=== PATIENT | female | born 1935 | race Caucasian/White ===

== ENCOUNTER 2016-10-31 17:13 | Inpatient (IN) | payer MEDICARE, MEDICAID ==
[2016-10-31] MEDS ORDERED: Sodium Chloride 0.9% 500 ML IV STA (18:07)
[2016-10-31 18:30] LABS: BASO # 0.01 K/mm3 (0.0-2.0); BASO % 0.2 % (0.0-3.0); EOS % 0.7 % (1.5-5.0); GRAN # 2.84 (1.4-6.5); GRAN % 67.2 % (50.0-68.0); HEMOGLOBIN 11.5 g/dL (12.0-16.0); LYMPH # 0.9 (1.2-3.4); LYMPH % 21.3 % (22.0-35.0); MEAN CORPUSCULAR HGB CONC 35.2 g/dl (31.0-37.0); MEAN PLATELET VOLUME 8.4 fl (7.0-11.0); MONO # 0.5 (0.1-0.6); MONO % 10.6 % (1.0-6.0); PLATELET COUNT 368 10^3/uL (120.0-450.0); RBC 4.42 10^6/uL (3.5-6.1); RED CELL DISTRIBUTION WIDTH 13.4 % (11.5-14.5); WHITE BLOOD COUNT 4.2 10^3/ul (4.5-11.0)
[2016-10-31 18:33] LABS: PH,URINE 6.5 (4.7-8.0); URINE BILIRUBIN NEGATIVE (NEGATIVE); URINE BLOOD SMALL (NEGATIVE); URINE GLUCOSE (UA) NEGATIVE (NEGATIVE); URINE LEUKOCYTE ESTERASE LARGE Leu/uL (NEGATIVE); URINE NITRATE POSITIVE (NEGATIVE); URINE PROTEIN TRACE mg/dL (<30 mg/dL)
[2016-10-31 18:35] LABS: URINE APPEARANCE SL CLOUDY (CLEAR); URINE COLOR YELLOW (YELLOW)
[2016-10-31 18:42] LABS: ALB/GLOB RATIO 1.3 (1.1-1.8); ALBUMIN 4.5 g/dL (3.0-4.8); ALT/SGPT 37 U/L (7-56); AST/SGOT 42 U/L (15-39); BLOOD UREA NITROGEN 19 mg/dL (7-21); CALCIUM 9.7 mg/dL (8.4-10.5); GFR AFRICAN-AMERICAN 33; GFR NON-AFRICAN AMERICAN 27
[2016-10-31 18:46] LABS: URINE BACTERIA MANY (NEG); URINE WBC TNTC /hpf (0-6)
[2016-10-31 18:59] LABS: FREE T4 2.01 ng/dL (0.78-2.19)
[2016-10-31] MEDS ORDERED: cefTRIAXone 1 gm 1 GM/100 ML BAG IVPB STA (18:59)
--- NOTE | 2016-10-31 19:00 | RAD ---
HISTORY: Nausea. COMPARISON: None. FINDINGS: LUNGS: No active pulmonary disease. PLEURA: No significant pleural effusion identified, no pneumothorax apparent. CARDIOVASCULAR: No radiographic findings to suggest acute or significant cardiovascular disease. OSSEOUS STRUCTURES: No significant abnormalities. VISUALIZED UPPER ABDOMEN: Normal. OTHER FINDINGS: None. IMPRESSION: No active disease.
--- NOTE | 2016-10-31 19:02 | ED PDOC ---
Arrival/HPI - General Chief Complaint: Female Genitourinary Time Seen by Provider: 10/31/16 17:30 Historian: Patient - History of Present Illness Narrative History of Present Illness (Text): 10/31/16 19:03 An 81 year old female sent from PMD office to the emergency department for workup and admission complaining of decrease in appetite and dysuria for a week. Patient was given prescription for antibiotic - bactrim, two days ago, which she is taking, without any improvement of dysuria. Reports nausea and one episode of vomiting today. Patient was told to get a thyroid test done because of past medical history of thyroid problems. Patient notes a chronic cough but denies any fever, chills, chest pain, SOB, abdominal pain, diarrhea, headache, dizziness or any other complaints at this time. PMD: Dr. Jeter Time/Duration: 1 week Symptom Onset: Sudden Symptom Course: Unchanged Activities at Onset: Rest Past Medical History - Provider Review Nursing Documentation Reviewed: Yes - Cardiac Hx Cardiac Disorders: Yes Hx Hypertension: Yes - Pulmonary Hx Respiratory Disorders: No - Neurological Hx Neurological Disorder: No - HEENT Hx HEENT Disorder: No - Renal Hx Renal Disorder: No - Endocrine/Metabolic Hx Endocrine Disorders: Yes Hx Hypothyroidism: Yes - Hematological/Oncological Hx Blood Disorders: No - Integumentary Hx Dermatological Disorder: No - Musculoskeletal/Rheumatological Hx Musculoskeletal Disorders: No - Gastrointestinal Hx Gastrointestinal Disorders: No - Genitourinary/Gynecological Hx Genitourinary Disorders: No - Psychiatric Hx Psychophysiologic Disorder: No Hx Substance Use: No Family/Social History - Physician Review Nursing Documentation Reviewed: Yes Family/Social History: No Known Family HX Smoking Status: Never Smoked Hx Alcohol Use: No Hx Substance Use: No Allergies/Home Meds Allergies/Adverse Reactions: Allergies No Known Allergies Allergy (Verified 10/31/16 17:22) Home Medications: Home Meds Medication Instructions Recorded Confirmed Bisoprolol [Zebeta] 5 mg PO DAILY 10/31/16 10/31/16 Clobetasol Propionate [Clobetasol 1 appful TOP PRN 10/31/16 10/31/16 Propionate] Ergocalciferol (Vitamin D2) 1.25 mg PO .WEEKLY 10/31/16 10/31/16 [Vitamin D2] Ibuprofen [Motrin Tab] 1 tab PO Q6 PRN 10/31/16 10/31/16 Levothyroxine [Synthroid] 25 mcg PO DAILY 10/31/16 10/31/16 Multivitamin [Multivitamins] 1 tab PO DAILY 10/31/16 10/31/16 Phenazopyridine [Pyridium] 200 mg PO TID 10/31/16 10/31/16 Proctozone-Hc 1 appful [place] BID 10/31/16 10/31/16 Sulfamethoxazole/Trimethoprim 1 tab PO BID 10/31/16 10/31/16 [Bactrim DS Tab] Valsartan/Hydrochlorothiazide 1 tab PO DAILY 10/31/16 10/31/16 [Valsartan-Hctz 160-25 mg Tab] amLODIPine [Norvasc] 10 mg PO DAILY 10/31/16 10/31/16 Review of Systems - Physician Review All systems were reviewed & negative as marked: Yes - Review of Systems Constitutional: absent: Fevers Respiratory: Cough (chronic) Cardiovascular: absent: Chest Pain Gastrointestinal: Nausea, Vomiting, Appetite Changes. absent: Abdominal Pain Genitourinary Female: Dysuria Physical Exam Vital Signs Reviewed: Yes Vital Signs Temp Pulse Resp BP Pulse Ox 10/31/16 21:10 97.9 F 62 16 125/60 93 L 10/31/16 20:20 56 L 16 125/61 94 L 10/31/16 17:19 99.2 F 61 16 124/73 94 L Temperature: Afebrile Blood Pressure: Normal Pulse: Regular Respiratory Rate: Normal Appearance: Positive for: Well-Appearing, Non-Toxic, Comfortable Pain Distress: None Mental Status: Positive for: Alert and Oriented X 3 - Systems Exam Head: Present: Atraumatic, Normocephalic Pupils: Present: PERRL Extroacular Muscles: Present: EOMI Conjunctiva: Present: Normal Mouth: Present: Dry Neck: Present: Normal Range of Motion Respiratory/Chest: Present: Clear to Auscultation, Good Air Exchange. No: Respiratory Distress, Accessory Muscle Use Cardiovascular: Present: Regular Rate and Rhythm, Normal S1, S2. No: Murmurs Abdomen: Present: Normal Bowel Sounds. No: Tenderness, Distention, Peritoneal Signs Back: Present: Normal Inspection Upper Extremity: Present: Normal Inspection. No: Cyanosis, Edema Lower Extremity: Present: Normal Inspection. No: Edema Neurological: Present: GCS=15, CN II-XII Intact, Speech Normal Skin: Present: Warm, Dry, Normal Color. No: Rashes Psychiatric: Present: Alert, Oriented x 3, Normal Insight, Normal Concentration Medical Decision Making ED Course and Treatment: 10/31/16 19:01 Impression: An 81 year old female with dysuria and decrease in appetite. Plan: -- EKG -- chest xray -- labs -- Blood cx -- Urinalysis -- Urine cx -- Zofran, IV fluids, Rocephin -- Reassess and disposition Progress Notes: EKG: SB at 59 bpm, (-) acute ST changes, as read by CHARLIE. CXR : NAD, as read by CHARLIE and ER . 10/31/16 19:03 chest xray: Creator : Davin Read MD IMPRESSION: No active disease. Lab results reviewed : CBC : WBC 4.2, Hgb 11.5/Hct 32.7, lactate 0.8 CMP : NA 120, Bun 19 / creat 1.8, trop (-) UA : +UTI. Rocephin 1 g IV ordered. On reevaluation, the patient laying in bed comfortably in no distress. Patient has no headache, dizziness, chest pain, shortness of breath, abdominal pain or nausea this time. Repeat exam, lungs CTA, cardiac RRR , abdomen still soft and non-tender, repeat neuro shows no focal findings, pt remains awake and alert. VS T 97.9 P 62 BP 125/61 R 16. Diagnostic results discussed with patient and with family, notified of diagnosis of UTI, hyponatremia, likely due to dehydration. Advised of the need for inpt admission for IV antitbiotics and failure of PO antibiotics. Case d/w Dr. Cota, agrees with plan for inpt admission. - Lab Interpretations Lab Results: 10/31/16 17:45 10/31/16 17:45 Lab Results 10/31/16 20:07: pO2 50, VBG pH 7.43, VBG pCO2 40.0, VBG HCO3 26.5, VBG Total CO2 27.7, VBG O2 Sat (Calc) 88.0 H, VBG Base Excess 2.0, VBG Potassium 4.2, Glucose 98, Lactate 0.8, FiO2 21.0, Sodium 121.0 L, Chloride 87.0 L, Venous Blood Potassium 4.2 10/31/16 17:45: Free T4 2.01, Total T3 1.09, TSH 3rd Generation 0.04 L 10/31/16 17:45: Sodium 120 L, Potassium 4.2, Chloride 87 L, Carbon Dioxide 24, Anion Gap 13, BUN 19, Creatinine 1.8 H, Est GFR ( Amer) 33, Est GFR (Non- Af Amer) 27, Random Glucose 106, Calcium 9.7, Magnesium 1.8, Total Bilirubin 0.6 , AST 42 H, ALT 37, Alkaline Phosphatase 69, Lactate Dehydrogenase 333, Total Creatine Kinase 61, Troponin I < 0.01, Total Protein 7.9, Albumin 4.5, Globulin 3.5, Albumin/Globulin Ratio 1.3 10/31/16 17:45: Urine Color Yellow, Urine Appearance Sl cloudy, Urine pH 6.5, Ur Specific [place] <= 1.005, Urine Protein Trace H, Urine Glucose (UA) Negative , Urine Ketones Negative, Urine Blood Small H, Urine Nitrate Positive H, Urine Bilirubin Negative, Urine Urobilinogen 1.0 H, Ur Leukocyte Esterase Large H, Urine RBC 2 - 5, Urine WBC Tntc, Ur Epithelial Cells 4 - 5, Urine Bacteria Many 10/31/16 17:45: WBC 4.2 L, RBC 4.42, Hgb 11.5 L, Hct 32.7 L, MCV 74.0 L, MCH 26.0, MCHC 35.2, RDW 13.4, Plt Count 368, MPV 8.4, Gran % 67.2, Lymph % (Auto) 21.3 L, [place] % (Auto) 10.6 H, Eos % (Auto) 0.7 L, Baso % (Auto) 0.2, Gran # 2.84 , Lymph # 0.9 L, [place] # 0.5, Eos # 0.0, Baso # 0.01, Neutrophils % (Manual) 74 H , Band Neutrophils % [employer], Lymphocytes % (Manual) 16 L, Monocytes % (Manual) 10 H , Platelet Evaluation Normal, Microcytosis (manual) Slight, Ovalocytes Slight I have reviewed the lab results: Yes - RAD Interpretation Radiology Orders: 10/31/16 18:07 CHEST PORTABLE [RAD] Stat - EKG Interpretation Interpreted by ED Physician: Yes Type: 12 lead EKG - Medication Orders Current Medication Orders: Acetaminophen (Tylenol 325mg Tab) 650 mg PO Q6H PRN PRN Reason: Fever >100.4 F Amlodipine Besylate (Norvasc) 10 mg PO DAILY TOÑA Ceftriaxone Sodium (Rocephin 1 Gram Ivpb) 1 gm in 100 mls @ 100 mls/hr IVPB DAILY TOÑA PRN Reason: Protocol Sodium Chloride (Sodium Chloride 0.45%) 1,000 mls @ 100 mls/hr IV .Q10H TOÑA Last Admin: 10/31/16 23:26 Dose: 100 mls/hr Levothyroxine Sodium (Synthroid) 25 mcg PO DAILY TOÑA Non-Formulary Medication (Bisoprolol [Zebeta]) 5 mg PO DAILY TOÑA Phenazopyridine HCl (Pyridium) 200 mg PO TID TOÑA Discontinued Medications Sodium Chloride (Sodium Chloride 0.9%) 500 mls @ 1,000 mls/hr IV .Q30M STA Stop: 10/31/16 18:36 Last Admin: 10/31/16 18:19 Dose: 1,000 mls/hr Ceftriaxone Sodium (Rocephin 1 Gram Ivpb) 1 gm in 100 mls @ 200 mls/hr IVPB STAT STA PRN Reason: Protocol Stop: 10/31/16 19:28 Last Admin: 10/31/16 21:09 Dose: 200 mls/hr Ondansetron HCl (Zofran Inj) 4 mg IVP STAT STA Stop: 10/31/16 18:08 Last Admin: 10/31/16 18:19 Dose: 4 mg Pneumococcal Polyvalent Vaccine (Pneumovax 23 Vaccine) 0.5 ml IM .ONCE ONE Stop: 10/31/16 22:31 - PA / [employer] / Resident Statement / has reviewed & agrees with the documentation as recorded. - Scribe Statement The provider has reviewed the documentation as recorded by the Torres Choudhury Provider Scribe Attestation: All medical record entries made by the Jorgeibkelsey were at my direction and personally dictated by me. I have reviewed the chart and agree that the record accurately reflects my personal performance of the history, physical exam, medical decision making, and the department course for this patient. I have also personally directed, reviewed, and agree with the discharge instructions and disposition. Disposition/Present on Arrival - Present on Arrival Any Indicators Present on Arrival: No History of DVT/PE: No History of Uncontrolled Diabetes: No Urinary Catheter: No History of Decub. Ulcer: No History Surgical Site Infection Following: None - Disposition Have Diagnosis and Disposition been Completed?: Yes Diagnosis: UTI (urinary tract infection), Hyponatremia, Dehydration Disposition: HOSPITALIZED Disposition Time: 20:20 Patient Plan: Admission Condition: STABLE
[2016-10-31 19:13] LABS: T3 1.09 ng/mL (0.97-1.69)
[2016-10-31 19:14] LABS: MAGNESIUM 1.8 mg/dL (1.7-2.2)
[2016-10-31 19:28] LABS: TROPONIN I < 0.01 ng/mL
[2016-10-31 19:33] LABS: LYMPHOCYTE 16 % (22.0-35.0); MICROCYTOSIS SLIGHT; MONOCYTE 10 % (1.0-6.0); NEUTROPHIL 74 % (50.0-70.0); PLATELET ESTIMATE NORMAL (NORMAL)
[2016-10-31 19:34] LABS: OVALOCYTES SLIGHT
[2016-10-31 20:17] LABS: VENOUS BLOOD GAS PO2 50 mm/Hg (30-55); VENOUS BLOOD PH 7.43 (7.32-7.43)
[2016-10-31 22:30] VITALS: BMI 31.2
[2016-10-31] MEDS ORDERED: Pneumococcal 23-Valent Vaccine IM ONE (22:30)
[2016-10-31] MEDS: Sodium Chloride 0.45% 1,000 ML IV SCH (23:26)
[2016-11-01 07:27] LABS: HEMOGLOBIN 9.4 g/dL (12.0-16.0); MEAN CORPUSCULAR HEMOGLOBIN 25.8 pg (25.0-35.0); MEAN CORPUSCULAR HGB CONC 34.4 g/dl (31.0-37.0); MEAN PLATELET VOLUME 8.4 fl (7.0-11.0); PLATELET COUNT 241 10^3/uL (120.0-450.0); RBC 3.64 10^6/uL (3.5-6.1); RED CELL DISTRIBUTION WIDTH 13.5 % (11.5-14.5)
[2016-11-01 07:40] LABS: WHITE BLOOD COUNT 2.6 10^3/ul (4.5-11.0)
[2016-11-01 07:43] LABS: ALB/GLOB RATIO 1.2 (1.1-1.8); ALBUMIN 3.5 g/dL (3.0-4.8); CALCIUM 8.9 mg/dL (8.4-10.5); URIC ACID 4.8 mg/dL (2.5-6.2)
[2016-11-01 07:50] LABS: FREE T4 2.01 ng/dL (0.78-2.19)
--- NOTE | 2016-11-01 07:59 | HP ---
The patient of Dr. Landry. HISTORY OF PRESENT ILLNESS: The patient has not been feeling well, decreased appetite, having some urinary symptoms. She was seen by PMD and was given Bactrim that she started 2 days ago with no significant improvement. She started to have nausea and vomited once and felt extremely weak. So she was brought to the emergency room for further evaluation. Denies any hemoptysis. Denies hematuria. Does have some back pain, but no fever or chills. The patient does complain of having intermittent cough for few days. PAST MEDICAL HISTORY: Significant for, 1. Hypertension. 2. History of hypothyroidism. 3. Chronic back pain. ALLERGIES: SHE IS NOT ALLERGIC TO ANY MEDICATIONS. MEDICATIONS: At home, she is on levothyroxine 25 mcg daily, valsartan 160/25 daily, bisoprolol 5 mg daily, vitamin D, Pyridium 200 three times a day, amlodipine 10 mg daily. SOCIAL HISTORY: She lives with her family. Denies smoking or drinking. REVIEW OF SYSTEMS: Significant for generalized weakness, poor appetite, nauseated. No abdominal pain. PHYSICAL EXAMINATION GENERAL: She is awake and alert, communicative. VITAL SIGNS: She is afebrile. Pulse 62, respirations 16, blood pressure 125/60. HEART: S1, S2 audible. LUNGS: Bilateral fair air flow. No rhonchi or crackles. ABDOMEN: Soft, nontender. No rebound, no guarding. NEUROLOGICAL: She is awake and alert, not able to communicate. LABORATORY DATA: WBC is 4.2, hemoglobin 11.5, hematocrit 32.7, platelets 368. Chemistry, sodium 120, potassium 4.2, chloride 97, CO2 of 24, BUN 19, creatinine 1.8, blood sugar of 106. LFTs are within normal limits. AST 42, ALT 37, troponin 0.01. TSH is 0.04. T4 is 2.01. Urinalysis shows large leukocyte, positive nitrite, and small blood. ASSESSMENT: 1. Hyponatremia. 2. Resistant urinary tract infection. 3. Hypertension. 4. Hyperlipidemia. 5. Hypothyroidism. 6. Renal insufficiency. PLAN: The patient will be admitted. Blood culture and urine cultures were sent. We will start her on IV normal saline. We will resume her antihypertensive. Followup her electrolyte in the a.m. ID consult Dr. Boyle has been requested. Ellen Cota MD [facility] # [id number]
[2016-11-01 09:31] LABS: ANISOCYTOSIS SLIGHT; EOSINOPHIL 2 % (0.0-3.0); LYMPHOCYTE 31 % (22.0-35.0); MONOCYTE 12 % (1.0-6.0); MYELOCYTE 1 %; NEUTROPHIL 54 % (50.0-70.0); PLATELET ESTIMATE NORMAL (NORMAL)
[2016-11-01] MEDS: BISOPROLOL 5 MG PO SCH (10:46)
[2016-11-01] MEDS: Levothyroxine 25 MCG TAB PO SCH ×2 (10:47→11:28)
[2016-11-01] MEDS: Sodium Chloride 0.45% 1,000 ML IV SCH (10:47)
[2016-11-01] MEDS: cefTRIAXone 1 gm 1 GM/100 ML BAG IVPB SCH (10:48)
--- NOTE | 2016-11-01 12:06 | CP.PCM.CON ---
History of Present Illness - History of Present Illness History of Present Illness: 81 year old female with PMH of hypothyroidism, HTN, obesity with BMI 31 was brought in to [facility] after presenting to her PMD complaining of dysuria as well as decreased appetite which started about 4-5 days ago. She was prescribed antibiotics 2 days ago but still has dysuria and pain when uses the bathroom. She had an episode of nausea which is not present currently, denies fever or chills, no headache or dizziness, no chest pain, no SOB, no cough or colds, no abdominal pain, no diarrhea. Urinalysis shows pyuria. Infectious Diseases consult is requested to further evaluate and manage. Review of Systems - Review of Systems All systems: reviewed and no additional remarkable complaints except (as per HPI ) Past Patient History - Past Social History Smoking Status: Never Smoked - CARDIAC Hx Cardiac Disorders: Yes Hx Hypertension: Yes - PULMONARY Hx Respiratory Disorders: No - NEUROLOGICAL Hx Neurological Disorder: No - HEENT Hx HEENT Problems: Yes (glasses) Hx Cataracts: Yes (r eys sx) - RENAL Hx Chronic Kidney Disease: No - ENDOCRINE/METABOLIC Hx Endocrine Disorders: Yes Hx Hypothyroidism: Yes - HEMATOLOGICAL/ONCOLOGICAL Hx Blood Disorders: No - INTEGUMENTARY Hx Dermatological Problems: No - MUSCULOSKELETAL/RHEUMATOLOGICAL Hx Musculoskeletal Disorders: No Hx Falls: No - GASTROINTESTINAL Hx Gastrointestinal Disorders: Yes (obese) - GENITOURINARY/GYNECOLOGICAL Hx Genitourinary Disorders: No - PSYCHIATRIC Hx Psychophysiologic Disorder: No Hx Substance Use: No - SURGICAL HISTORY Hx Surgeries: No Meds Allergies/Adverse Reactions: Allergies Allergy/AdvReac Type Severity Reaction Status Date / Time No Known Allergies Allergy Verified 10/31/16 17:22 - Medications Medications: Current Medications Acetaminophen (Tylenol 325mg Tab) 650 mg PO Q6H PRN PRN Reason: Fever >100.4 F Amlodipine Besylate (Norvasc) 10 mg PO DAILY TOÑA Ceftriaxone Sodium (Rocephin 1 Gram Ivpb) 1 gm in 100 mls @ 100 mls/hr IVPB DAILY TOÑA PRN Reason: Protocol Sodium Chloride (Sodium Chloride 0.45%) 1,000 mls @ 100 mls/hr IV .Q10H TOÑA Levothyroxine Sodium (Synthroid) 25 mcg PO DAILY TOÑA Non-Formulary Medication (Bisoprolol [Zebeta]) 5 mg PO DAILY TOÑA Phenazopyridine HCl (Pyridium) 200 mg PO TID TOÑA Physical Exam - Constitutional Appears: Non-toxic, No Acute Distress - Head Exam Head Exam: NORMAL INSPECTION - ENT Exam ENT Exam: Mucous Membranes Moist - Neck Exam Neck exam: Negative for: Meningismus - Respiratory Exam Respiratory Exam: Decreased Breath Sounds - Cardiovascular Exam Cardiovascular Exam: +S1, +S2 - GI/Abdominal Exam GI & Abdominal Exam: Soft. absent: Tenderness - Back Exam Back exam: absent: CVA tenderness (L), CVA tenderness (R) Results - Vital Signs Recent Vital Signs: Last Vital Signs Temp 97.9 F 10/31/16 22:19 Pulse 62 10/31/16 22:19 Resp 16 10/31/16 22:19 BP 125/61 10/31/16 22:19 Pulse Ox 93 L 10/31/16 21:10 - Labs Result Diagrams: 11/01/16 06:00 11/01/16 06:00 Assessment & Plan - Assessment and Plan (Free Text) Plan: Assessment Consider sepsis due to urinary tract infection hypothyroidism HTN obesity with BMI 31 Plan Started patient on Rocephin; follow up urine, blood cx, renal ultrasound will monitor clinically
--- NOTE | 2016-11-01 13:08 | PN ---
SUBJECTIVE: The patient is an 81-year-old seen and examined, son by the bedside. Information got by airway controller. The patient is mohawk speaking. Did not look in any distress. Complained of cough and congestion with the mucus production, not feeling well. PHYSICAL EXAMINATION VITAL SIGNS: She has temperature of 99.6, pulse 56, respiration 20, blood pressure 104/44. LUNGS: Bilateral fair air flow. No rhonchi or crackles. HEART: S1 and S2 and audible. ABDOMEN: Soft and obese. Nontender, no rebound, no guarding. NEUROLOGIC: The patient is awake and alert. Able to communicate, but has language barrier. LABORATORY DATA: Sodium 123, potassium 3.6, chloride 88, CO2 of 26, BUN 16, creatinine 1.8, blood sugar of 78. Urine positive for nitrate, large leukocyte, cultures are pending. ASSESSMENT: 1. Generalized weakness. 2. Asthmatic bronchitis. 3. Hyponatremia. 4. Pyuria. 5. Leukopenia. PLAN: Lot of her CT scan of the chest, CT abdomen and pelvis and request for GI evaluation and nephrology evaluation, and we will follow up her electrolyte and renal ultrasound has been requested. We will follow up the patient in a.m. Ellen Cota MD
--- NOTE | 2016-11-01 15:20 | US ---
PROCEDURE: Ultrasound of the Kidneys HISTORY: rule out hydronephrosis COMPARISON: None available. TECHNIQUE: Sonogram of the kidneys. FINDINGS: RIGHT KIDNEY: Measures: 4.8 x 10.5 cm. Normal in size, contour with increased echogenicity compatible with medical renal disease Incidental finding(s): Simple cysts none larger than 10 mm. No stone, solid mass lesion or hydronephrosis visualized. LEFT KIDNEY: Measures: 4.1 x 5.3 x 9.4 cm. Normal in size, contour with increased echogenicity compatible with medical renal disease. Incidental parapelvic cyst 2.4 x 3 cm No stone, solid mass lesion or hydronephrosis visualized. OTHER FINDINGS: None. IMPRESSION: No significant or acute findings to account for/ related to the clinical presentation.
--- NOTE | 2016-11-01 18:56 | CARD ---
APPROVED REPORT EKG Measurement Heart [id number] IN 200P1 [id number] <Conclusion> Sinus bradycardia Otherwise normal ECG
[2016-11-02 07:53] LABS: BASO # 0.03 K/mm3 (0.0-2.0); BASO % 1.1 % (0.0-3.0); EOS # 0.1 (0.0-0.7); EOS % 3.9 % (1.5-5.0); GRAN # 1.38 (1.4-6.5); GRAN % 48.4 % (50.0-68.0); HEMOGLOBIN 9.4 g/dL (12.0-16.0); LYMPH # 0.8 (1.2-3.4); LYMPH % 28.4 % (22.0-35.0); MEAN CELL VOLUME 75.8 fl (80.0-105.0); MEAN CORPUSCULAR HEMOGLOBIN 25.8 pg (25.0-35.0); MEAN CORPUSCULAR HGB CONC 34.1 g/dl (31.0-37.0); MEAN PLATELET VOLUME 8.3 fl (7.0-11.0); MONO # 0.5 (0.1-0.6); MONO % 18.2 % (1.0-6.0); PLATELET COUNT 218 10^3/uL (120.0-450.0); RBC 3.64 10^6/uL (3.5-6.1); RED CELL DISTRIBUTION WIDTH 13.6 % (11.5-14.5)
[2016-11-02 07:59] LABS: WHITE BLOOD COUNT 3.1 10^3/ul (4.5-11.0)
[2016-11-02 08:08] LABS: ALB/GLOB RATIO 1.1 (1.1-1.8); ALBUMIN 3.3 g/dL (3.0-4.8); CALCIUM 8.7 mg/dL (8.4-10.5)
[2016-11-02] MEDS: BISOPROLOL 5 MG PO SCH (09:02)
[2016-11-02] MEDS: Levothyroxine 25 MCG TAB PO SCH (09:28)
[2016-11-02] MEDS: cefTRIAXone 1 gm 1 GM/100 ML BAG IVPB SCH (09:28)
--- NOTE | 2016-11-02 10:28 | CP.PCM.CON ---
History of Present Illness - History of Present Illness History of Present Illness: tthis 81-year-old patient with a past medical history of hypertension dyslipidemia was recently seen by primary physician for dysuria if a biliary urinary tract infection and was given Bactrim. Patient was not getting better presented to the emergency room. Found to be hyponatremic, atrial insufficiency. Patient was admitted for further evaluation. Started on antibiotics ceftriaxone as per ID noticed to have drop in blood count GI consult was requested to evaluate this. No obvious melena no vomiting no bleeding per rectum no abdominal pain. Patient's granddaughter was at bedside. Patient denied a having had any endoscopy or colonoscopy in the past Review of Systems - Review of Systems All systems: reviewed and no additional remarkable complaints except - Constitutional Constitutional: absent: Fever, Weight Loss - EENT Eyes: As Per HPI - Cardiovascular Cardiovascular: absent: Chest Pain, Palpitations - Respiratory Respiratory: absent: Cough, Dyspnea - Gastrointestinal Gastrointestinal: As Per HPI Past Patient History - Past Social History Smoking Status: Never Smoked - CARDIAC Hx Cardiac Disorders: Yes Hx Hypertension: Yes - PULMONARY Hx Respiratory Disorders: No - NEUROLOGICAL Hx Neurological Disorder: No - HEENT Hx HEENT Problems: Yes (glasses) Hx Cataracts: Yes (r eys sx) - RENAL Hx Chronic Kidney Disease: No - ENDOCRINE/METABOLIC Hx Endocrine Disorders: Yes Hx Hypothyroidism: Yes - HEMATOLOGICAL/ONCOLOGICAL Hx Blood Disorders: No - INTEGUMENTARY Hx Dermatological Problems: No - MUSCULOSKELETAL/RHEUMATOLOGICAL Hx Musculoskeletal Disorders: No Hx Falls: No - GASTROINTESTINAL Hx Gastrointestinal Disorders: Yes (obese) - GENITOURINARY/GYNECOLOGICAL Hx Genitourinary Disorders: No - PSYCHIATRIC Hx Psychophysiologic Disorder: No Hx Substance Use: No - SURGICAL HISTORY Hx Surgeries: No Meds Allergies/Adverse Reactions: Allergies Allergy/AdvReac Type Severity Reaction Status Date / Time No Known Allergies Allergy Verified 10/31/16 17:22 - Medications Medications: Current Medications Acetaminophen (Tylenol 325mg Tab) 650 mg PO Q6H PRN PRN Reason: Fever >100.4 F Amlodipine Besylate (Norvasc) 10 mg PO DAILY [facility] Last Admin: 11/01/16 11:28 Dose: 10 mg Ceftriaxone Sodium (Rocephin 1 Gram Ivpb) 1 gm in 100 mls @ 100 mls/hr IVPB DAILY TOÑA PRN Reason: Protocol Last Admin: 11/01/16 10:48 Dose: 100 mls/hr Levothyroxine Sodium (Synthroid) 25 mcg PO DAILY [facility] Last Admin: 11/01/16 11:28 Dose: 25 mcg Non-Formulary Medication (Bisoprolol [Zebeta]) 5 mg PO DAILY [facility] Last Admin: 11/01/16 10:46 Dose: Not Given Phenazopyridine HCl (Pyridium) 200 mg PO TID [facility] Last Admin: 11/01/16 17:59 Dose: 200 mg Physical Exam - Head Exam Head Exam: ATRAUMATIC, NORMOCEPHALIC - Eye Exam Eye Exam: EOMI Pupil Exam: PERRL - ENT Exam ENT Exam: Mucous Membranes Moist, Normal Oropharynx - Neck Exam Neck exam: Positive for: Normal Inspection. Negative for: Lymphadenopathy, Tenderness - Respiratory Exam Respiratory Exam: NORMAL BREATHING PATTERN. absent: Rales, Rhonchi - Cardiovascular Exam Cardiovascular Exam: +S1, +S2. absent: JVD - GI/Abdominal Exam GI & Abdominal Exam: Soft. absent: Mass, Tenderness - Extremities Exam Extremities exam: Negative for: calf tenderness, pedal edema Results - Vital Signs Recent Vital Signs: Last Vital Signs Temp 97.7 F 11/01/16 17:07 Pulse 52 L 11/01/16 22:00 Resp 20 11/01/16 17:07 BP 100/36 L 11/01/16 17:07 Pulse Ox 94 L 11/01/16 05:36 - Labs Result Diagrams: 11/02/16 07:42 11/02/16 07:42 Labs: Laboratory Results - last 24 hr 11/01/16 11/01/16 11/01/16 06:00 06:00 06:00 WBC 2.6 L* D RBC 3.64 Hgb 9.4 L D Hct 27.3 L MCV 75.0 L MCH 25.8 MCHC 34.4 RDW 13.5 Plt Count 241 MPV 8.4 Neutrophils % (Manual) 54 Lymphocytes % (Manual) 31 Monocytes % (Manual) 12 H Eosinophils % (Manual) 2 Myelocytes % 1 Platelet Evaluation Normal Anisocytosis (manual) Slight Sodium 123 L Potassium 3.6 Chloride 88 L Carbon Dioxide 26 Anion Gap 13 BUN 16 Creatinine 1.8 H Est GFR ( Amer) 33 Est GFR (Non-Af Amer) 27 POC Glucose (mg/dL) Random Glucose 78 Uric Acid 4.8 Calcium 8.9 Phosphorus 3.3 Total Bilirubin 0.4 AST 37 ALT 36 Alkaline Phosphatase 50 Total Protein 6.4 Albumin 3.5 Globulin 2.9 Albumin/Globulin Ratio 1.2 Triglycerides 200 H Cholesterol 168 LDL Cholesterol Direct 91 HDL Cholesterol 36 Prostate Specific Ag < 0.1 Free T4 2.01 TSH 3rd Generation 0.04 L Urine Osmolality Ur Random Sodium 11/01/16 11/01/16 11/01/16 11:41 21:15 21:15 WBC RBC Hgb Hct MCV MCH MCHC RDW Plt Count MPV Neutrophils % (Manual) Lymphocytes % (Manual) Monocytes % (Manual) Eosinophils % (Manual) Myelocytes % Platelet Evaluation Anisocytosis (manual) Sodium Potassium Chloride Carbon Dioxide Anion Gap BUN Creatinine Est GFR ( Amer) Est GFR (Non-Af Amer) POC Glucose (mg/dL) 134 H Random Glucose Uric Acid Calcium Phosphorus Total Bilirubin AST ALT Alkaline Phosphatase Total Protein Albumin Globulin Albumin/Globulin Ratio Triglycerides Cholesterol LDL Cholesterol Direct HDL Cholesterol Prostate Specific Ag Free T4 TSH 3rd Generation Urine Osmolality 190 Ur Random Sodium 25 Assessment & Plan - Assessment and Plan (Free Text) Assessment: 1. Anemia and dropping blood count or no obvious GI bleeding etiology is unclear differential diagnoses should include a dilutional, multifactorial etiology 2. Urinary tract infection explained 3. Chronic kidney disease 4.hypothyroidism sliding type. 5. Hypertension Plan: 1. Follow up of the hemoglobin and hematocrit 2. Iron studies B12 and folate, reticulocyte count 3. Continue the present management 4. Stool for occult blood Thank you very much allowing us to participate In the care of the patient will continue to closely follow-up her care and suggests further management based on the clinical course - Date & Time Date: 11/01/16 Time: 15:00
--- NOTE | 2016-11-02 14:10 | CT ---
PROCEDURE: CT Abdomen and Pelvis with contrast HISTORY: Anemia, drop in hematocrit. Retroperitoneal hemorrhage suspected. COMPARISON: November 01, 2016. Bilateral renal ultrasound TECHNIQUE: Oral contrast only. Radiation dose: Total exam DLP = mGy-cm. This CT exam was performed using one or more of the following dose reduction techniques: Automated exposure control, adjustment of the mA and/or kV according to patient size, and/or use of iterative reconstruction technique. FINDINGS: LOWER THORAX: Unremarkable. LIVER: Unremarkable. No gross lesion or ductal dilatation. GALLBLADDER AND BILE DUCTS: Cholelithiasis without CT evidence of acute cholecystitis. PANCREAS: Unremarkable. No gross lesion or ductal dilatation. SPLEEN: Splenomegaly, multiple calcified splenic cysts. The largest measures 6.8 cm. The differential diagnostic considerations include those associated with infection. Echinoccal cysts would be the most likely etiology. Secondary cysts associate with trauma should also be considered. Congenital and neoplastic cysts are not excluded. These do not appear to contain hemorrhage. Mean Hounsfield unit values in the cysts do not exceed 12. ADRENALS: Unremarkable. No mass. KIDNEYS AND URETERS: Unremarkable. No hydronephrosis. No solid mass. Incidental finding(s): Parapelvic cyst left kidney better visualized on recent renal ultrasound ( November 01, 2016.) VASCULATURE: Unremarkable. No aortic aneurysm. BOWEL: Constipation without fecal impaction or obstruction. APPENDIX: Normal appendix. PERITONEUM: Unremarkable. No free fluid. No free air. LYMPH NODES: Unremarkable. No enlarged lymph nodes. BLADDER: Unremarkable. REPRODUCTIVE: Unremarkable. BONES: No acute fracture. Scoliosis, secondary degenerative change at multiple levels. OTHER FINDINGS: None. IMPRESSION: 1. No acute findings related to/accounting for the clinical presentation. Specifically no evidence to suggest retroperitoneal or intraperitoneal hemorrhage. 2. Splenomegaly. Multiple splenic cysts with calcification of the rim identified. Differential diagnostic considerations are provided above. 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
--- NOTE | 2016-11-02 15:06 | CP.PCM.PN ---
Subjective - Date & Time of Evaluation Date of Evaluation: 11/02/16 Time of Evaluation: 13:30 - Subjective Subjective: tthis patient was seen and evaluated here earlier. Patient's son was at bedside denies any abdominal pain tolerating the diet Objective - Vital Signs/Intake and Output Vital Signs (last 24 hours): Temp Pulse Resp BP Pulse Ox 97 F L 53 L 20 130/45 L 99 11/02/16 12:00 11/02/16 12:00 11/02/16 12:00 11/02/16 12:00 11/02/16 05:53 Intake and Output: 11/02/16 11/02/16 06:59 18:59 Intake Total 680 Output Total 300 Balance 380 - Medications Medications: Current Medications Acetaminophen (Tylenol 325mg Tab) 650 mg PO Q6H PRN PRN Reason: Fever >100.4 F Amlodipine Besylate (Norvasc) 10 mg PO DAILY [facility] Last Admin: 11/02/16 09:28 Dose: 10 mg Ceftriaxone Sodium (Rocephin 1 Gram Ivpb) 1 gm in 100 mls @ 100 mls/hr IVPB DAILY [facility] PRN Reason: Protocol Last Admin: 11/02/16 09:28 Dose: 100 mls/hr Levothyroxine Sodium (Synthroid) 25 mcg PO DAILY [facility] Last Admin: 11/02/16 09:28 Dose: 25 mcg Non-Formulary Medication (Bisoprolol [Zebeta]) 5 mg PO DAILY [facility] Last Admin: 11/02/16 09:02 Dose: Not Given Phenazopyridine HCl (Pyridium) 200 mg PO TID [facility] Last Admin: 11/02/16 09:28 Dose: 200 mg - Labs Labs: 11/02/16 07:42 11/02/16 07:42 - Constitutional Appears: No Acute Distress - Head Exam Head Exam: ATRAUMATIC, NORMOCEPHALIC - Eye Exam Eye Exam: EOMI, PERRL - ENT Exam ENT Exam: Mucous Membranes Moist, Normal Oropharynx - Respiratory Exam Respiratory Exam: Clear to Ausculation Bilateral, NORMAL BREATHING PATTERN. absent: Rales, Rhonchi - Cardiovascular Exam Cardiovascular Exam: +S1, +S2. absent: JVD - GI/Abdominal Exam GI & Abdominal Exam: Soft, Normal Bowel Sounds. absent: Tenderness - Extremities Exam Extremities Exam: Full ROM. absent: Calf Tenderness - Neurological Exam Neurological Exam: Alert, Oriented x3 Assessment and Plan - Assessment and Plan (Free Text) Assessment: 1. anemia and drop in blood count and no obvious bleeding no complaints. Etiology is probably multifactorial history of chronic kidney disease dilutional , iron deficiency pattern also has to be ruled out never had a EGD and colonoscopy in the past 2. Urinary tract infection continue antibiotics as per ID 3. Other comorbidities including chronic kidney disease hypothyroidism and hypertension PLAN 1. Stool for occult blood 2. Follow hemoglobin and hematocrit 3. Reticulocyte count IN studies B12 and folate 4. Would consider CT of the abdomen and pelvis with by mouth contrast to further evaluaterule out any retroperitoneal bleeding or intra-abdominal lesion Thank you very much allowing us to participate In the care of the patient will continue to closely follow-up her care and suggests further management based on the clinical course
--- NOTE | 2016-11-02 15:51 | CP.PCM.PN ---
Subjective - Date & Time of Evaluation Date of Evaluation: 11/02/16 Time of Evaluation: 10:40 - Subjective Subjective: Comfortable, not in distress, less pain in her back and lower abdomen. No fevers overnight. Objective - Vital Signs/Intake and Output Vital Signs (last 24 hours): Temp Pulse Resp BP Pulse Ox 98.3 F 52 L 18 95/45 L 99 11/02/16 05:53 11/02/16 05:54 11/02/16 05:53 11/02/16 05:53 11/02/16 05:53 Intake and Output: 11/02/16 11/02/16 06:59 18:59 Intake Total 680 Output Total 300 Balance 380 - Medications Medications: Current Medications Acetaminophen (Tylenol 325mg Tab) 650 mg PO Q6H PRN PRN Reason: Fever >100.4 F Amlodipine Besylate (Norvasc) 10 mg PO DAILY [facility] Last Admin: 11/01/16 11:28 Dose: 10 mg Ceftriaxone Sodium (Rocephin 1 Gram Ivpb) 1 gm in 100 mls @ 100 mls/hr IVPB DAILY [facility] PRN Reason: Protocol Last Admin: 11/01/16 10:48 Dose: 100 mls/hr Levothyroxine Sodium (Synthroid) 25 mcg PO DAILY [facility] Last Admin: 11/01/16 11:28 Dose: 25 mcg Non-Formulary Medication (Bisoprolol [Zebeta]) 5 mg PO DAILY [facility] Last Admin: 11/01/16 10:46 Dose: Not Given Phenazopyridine HCl (Pyridium) 200 mg PO TID [facility] Last Admin: 11/01/16 17:59 Dose: 200 mg - Labs Labs: 11/02/16 07:42 11/01/16 06:00 - Constitutional Appears: Non-toxic, No Acute Distress - Head Exam Head Exam: NORMAL INSPECTION - ENT Exam ENT Exam: Mucous Membranes Moist - Neck Exam Neck Exam: absent: Lymphadenopathy, Meningismus - Respiratory Exam Respiratory Exam: Decreased Breath Sounds - Cardiovascular Exam Cardiovascular Exam: +S1, +S2 - GI/Abdominal Exam GI & Abdominal Exam: Soft. absent: Tenderness Assessment and Plan - Assessment and Plan (Free Text) Plan: Assessment Consider sepsis due to urinary tract infection due to Citrobacter hypothyroidism HTN obesity with BMI 31 Plan continue Rocephin day 2; follow up renal ultrasound will continue to monitor clinically
[2016-11-02] MEDS ORDERED: Promethazine 6.25 MG/5 ML CUP PO PRN (18:26)
[2016-11-02] MEDS: Sodium Chloride 0.9% 1,000 ML IV SCH (19:00)
[2016-11-03] MEDS: Sodium Chloride 0.9% 1,000 ML IV SCH (04:59)
[2016-11-03 06:04] LABS: HEMOGLOBIN 9.5 g/dL (12.0-16.0); MEAN CELL VOLUME 76.2 fl (80.0-105.0); MEAN CORPUSCULAR HEMOGLOBIN 25.4 pg (25.0-35.0); MEAN CORPUSCULAR HGB CONC 33.3 g/dl (31.0-37.0); PLATELET COUNT 216 10^3/uL (120.0-450.0); RBC 3.74 10^6/uL (3.5-6.1); RED CELL DISTRIBUTION WIDTH 13.7 % (11.5-14.5)
[2016-11-03 06:24] LABS: WHITE BLOOD COUNT 2.4 10^3/ul (4.5-11.0)
[2016-11-03 06:39] LABS: % IRON SATURATION 26 % (20-55); IRON 84 ug/dL (45-180); TOTAL IRON BINDING CAPACITY 320 ug/dL (265-497)
--- NOTE | 2016-11-03 08:34 | CON ---
DATE: 11/02/2016 REFERRING PHYSICIAN: Ellen Cota MD REASON FOR CONSULTATION: Hyponatremia. HISTORY OF PRESENT ILLNESS: This is an 81-year-old female who is coming into the hospital with a past medical history of hypothyroidism, hypertension, and obesity. The patient had come in because of dysuria. She was having changes in her appetite for the past few days. She had been on antibiotic, but was complaining of urinary symptoms. She was having an episode of nausea. The patient was found to have a urinary tract infection on Citrobacter. She has no chest pain and no shortness of breath. No headaches or dizziness. She had been on Bactrim, but no improvement of her symptoms. REVIEW OF SYSTEMS: All other review of systems are within normal limits except what is mentioned. PAST MEDICAL HISTORY: 1. Chronic back pain. 2. Hypothyroidism. 3. Hypertension. ALLERGIES: NO KNOWN DRUG ALLERGY. MEDICATIONS: Levothyroxine, valsartan, metoprolol, vitamin D, Pyridium, and amlodipine . SOCIAL HISTORY: She lives with her family. She denies smoking or drinking. PHYSICAL EXAMINATION VITAL SIGNS: She has a temperature of 98.3, pulse of 80, blood pressure is 124/52, and respirations of 19. Height is 5 feet and weight is 159 pound. BMI is 31.1. GENERAL: The patient lying in bed, uncomfortable, and in no acute distress. HEENT: Atraumatic and normocephalic. Anicteric sclerae. Moist mucosa. [place] conjunctivae. No oral lesions. NECK: No JVD, anterior and posterior adenopathy, thyromegaly, or bruits. CARDIOVASCULAR: S1 and S2 regular. No murmur, rubs, or gallop. LUNGS: Clear to auscultation bilaterally. No wheezes, rales, or rhonchi. ABDOMEN: Bowel sounds are positive. Soft, nontender and nondistended. No hepatosplenomegaly. No rebound and no guarding EXTREMITIES: No cyanosis, clubbing, or edema. NEUROLOGIC: No facial asymmetry. Tongue is midline. No vulva deviation. Power is 5/5 upper extremity and lower extremity. Sensation intact in upper extremity and lower extremity. PSYCHIATRIC: She is awake, alert and oriented x3. No anxiety or depression. She has normal affect. GENITOURINARY: No CVA tenderness. VASCULAR: 2+ pulses in the carotid pulses and pedal pulses. SKIN: No erythema or nodules SPINE: Shows normal curvature. EXTREMITIES: No Cyanosis and clubbing, no edema. LABORATORY DATA: Sodium is 123, potassium is 3.6, and BUN is 3.5. TSH is 0.04 and free T4 is 2.01. White count of 2.6, hemoglobin of 9.4, and platelet count is 241. Urine shows a blood is small, nitrites are positive and esterase is large. IMAGING DATA: She had a chest x-ray done that shows no active disease. DIAGNOSTIC DATA: EKG shows sinus bradycardia 59 and QTc is 459, and no ST-T changes. ASSESSMENT: 1. Hyponatremia. 2. Hypothyroidism. 3. Hypertension. 4. Chronic back pain. 5. Nausea, improved. 6. Dyslipidemia. 7. Chronic kidney disease, stage IV. 8. Microcytic anemia. PLAN: The patient is currently comfortable. She has hyponatremia and chronic kidney disease stage IV. She was taking antibiotic with Bactrim. She is currently on amlodipine for hypertension. She is on bisoprolol. The patient had a CT of the abdomen and pelvis done that showed no evidence suggestive of hemorrhage, there was splenomegaly, there was multiple splenic cysts with calcification. The patient has hyponatremia, this may be secondary to the nausea that she was having when she came into the hospital. She has urine sodium that is low at 265, so she is hypotonic. The patient is euvolemic, so she will be placed on normal saline. I will give her a dose of Lasix as well, now to try to help with her hyponatremia, currently she feels well. I hope this is also coverage for Dr. Cota, who is off today and I am covering her medical patient. We will continue to follow closely. She will need iron studies. I will also add urine for total protein and creatinine to try to find out the cause of her chronic kidney disease. She does have hypertension, which is probably cause. Kai Falcon MD
[2016-11-03] MEDS: Levothyroxine 25 MCG TAB PO SCH (09:56)
[2016-11-03] MEDS: cefTRIAXone 1 gm 1 GM/100 ML BAG IVPB SCH (09:56)
--- NOTE | 2016-11-03 10:00 | PN ---
DATE: 11/03/2016 SUBJECTIVE: The patient has no complaints of chest pain, no shortness of breath. PHYSICAL EXAMINATION VITAL SIGNS: Temperature of 98.4, pulse of 72, blood pressure is 101/45, and respirations of 20. O2 saturation 96%. GENERAL: The patient is lying in bed, flat, comfortable. HEENT: No oral lesion. Anicteric sclerae. Moist mucosa. NECK: No JVD, adenopathy, or thyromegaly. CARDIOVASCULAR: S1 and S2, regular. No murmurs, rubs, or gallops. LUNGS: Clear to auscultation bilaterally. No wheeze, rales, or rhonchi. ABDOMEN: Bowel sounds are positive, soft, nontender and nondistended. EXTREMITIES: no cyanosis, clubbing or edema. LABS: White count of 2.4, hemoglobin of 9.5. ASSESSMENT: 1. Hyponatremia. 2. Hypothyroidism. 3. Hypertension. 4. Chronic back pain. 5. Nausea, improved. 6. Dyslipidemia. 7. Chronic kidney disease, stage IV. 8. Microcytic anemia. PLAN: The patient has a good saturation of iron. She is anemic. I will give her dose of Aranesp. The patient is currently on amlodipine for hypertension. She is on Rocephin for antibiotics. She does have UTI secondary to Citrobacter. She is on Synthroid for hypothyroidism. She is going to have repeat blood work tomorrow. I will discontinue her IV fluids at this point. I believe that her hyponatremia may could be cause of the nausea and hypertension causing an elevated ADH. The patient will repeat blood work tomorrow. Kai Falcon MD
[2016-11-03] MEDS: BISOPROLOL 5 MG PO SCH (10:02)
--- NOTE | 2016-11-03 12:17 | CP.PCM.PN ---
<Susi Hooks - Last Filed: 11/03/16 12:16> Subjective - Date & Time of Evaluation Date of Evaluation: 11/03/16 Time of Evaluation: 09:00 - Subjective Subjective: seen and examined at the bedside earlier today. The chart was reviewed. Patient's granddaughter was at the bedside, patient denies nausea, vomiting, or abdominal pain. She had a bowel movement yesterday and no reports of melena or bright red blood per rectum. Pending stool for guaiac. Patient didn't go for CT scan of abdomen and pelvis yesterday found to have gallbladder stones, splenomegaly and multiple cysts with calcification. No acute overnight events reported. Objective - Vital Signs/Intake and Output Vital Signs (last 24 hours): Temp Pulse Resp BP Pulse Ox 98.4 F 72 20 129/58 L 96 11/03/16 06:00 11/03/16 06:00 11/03/16 06:00 11/03/16 09:56 11/03/16 06:00 Intake and Output: 11/03/16 11/03/16 06:59 18:59 Intake Total 2020 Balance 2020 - Medications Medications: Current Medications Acetaminophen (Tylenol 325mg Tab) 650 mg PO Q6H PRN PRN Reason: Fever >100.4 F Amlodipine Besylate (Norvasc) 10 mg PO DAILY [facility] Last Admin: 11/03/16 09:56 Dose: 10 mg Ceftriaxone Sodium (Rocephin 1 Gram Ivpb) 1 gm in 100 mls @ 100 mls/hr IVPB DAILY [facility] PRN Reason: Protocol Last Admin: 11/03/16 09:56 Dose: 100 mls/hr Levothyroxine Sodium (Synthroid) 25 mcg PO DAILY [facility] Last Admin: 11/03/16 09:56 Dose: 25 mcg Non-Formulary Medication (Bisoprolol [Zebeta]) 5 mg PO DAILY [facility] Last Admin: 11/03/16 10:02 Dose: Not Given Phenazopyridine HCl (Pyridium) 200 mg PO TID [facility] Last Admin: 11/03/16 09:56 Dose: 200 mg Promethazine HCl (Phenergan Syrup) 6.25 mg PO Q4H PRN PRN Reason: Cough Last Admin: 11/02/16 21:29 Dose: 6.25 mg - Labs Labs: 11/03/16 05:50 11/02/16 07:42 - Constitutional Appears: No Acute Distress - Head Exam Head Exam: NORMOCEPHALIC - Eye Exam Eye Exam: Normal appearance. absent: Scleral icterus - ENT Exam ENT Exam: Mucous Membranes Moist - Neck Exam Neck Exam: Normal Inspection - Respiratory Exam Respiratory Exam: NORMAL BREATHING PATTERN. absent: Respiratory Distress - Cardiovascular Exam Cardiovascular Exam: +S1, +S2 - GI/Abdominal Exam GI & Abdominal Exam: Soft, Normal Bowel Sounds. absent: Guarding, Tenderness, Rebound - Neurological Exam Neurological Exam: Alert, Awake, Oriented x3 - Skin Skin Exam: Dry, Warm Assessment and Plan - Assessment and Plan (Free Text) Assessment: Assessment: Anemia and drop in blood count and no obvious bleeding no complaints. Etiology is probably multifactorial history of chronic kidney disease dilutional, iron deficiency pattern also has to be ruled out never had a EGD and colonoscopy in the past, ct scan negative for retroperitoneal bleed or malignancy. hyponatremia Urinary tract infection h/o hypothyroidism h/o hypertension PLAN: Stool for occult blood Follow hemoglobin and hematocrit continue antibiotics as per ID On Pyridium Monitor electrolytes Spoke to the patient's granddaughter at the bedside. Seen and discussed with Dr. Tanner. <Dhaval Tanner V - Last Filed: 11/03/16 22:24> Objective - Vital Signs/Intake and Output Vital Signs (last 24 hours): Temp Pulse Resp BP Pulse Ox 97.3 F L 64 20 131/64 96 11/03/16 12:00 11/03/16 12:00 11/03/16 12:00 11/03/16 12:00 11/03/16 06:00 Intake and Output: 11/03/16 11/04/16 18:59 06:59 Intake Total 600 Balance 600 - Medications Medications: Current Medications Acetaminophen (Tylenol 325mg Tab) 650 mg PO Q6H PRN PRN Reason: Fever >100.4 F Amlodipine Besylate (Norvasc) 10 mg PO DAILY [facility] Last Admin: 11/03/16 09:56 Dose: 10 mg Ceftriaxone Sodium (Rocephin 1 Gram Ivpb) 1 gm in 100 mls @ 100 mls/hr IVPB DAILY [facility] PRN Reason: Protocol Last Admin: 11/03/16 09:56 Dose: 100 mls/hr Levothyroxine Sodium (Synthroid) 25 mcg PO DAILY [facility] Last Admin: 11/03/16 09:56 Dose: 25 mcg Non-Formulary Medication (Bisoprolol [Zebeta]) 5 mg PO DAILY [facility] Last Admin: 11/03/16 10:02 Dose: Not Given Phenazopyridine HCl (Pyridium) 200 mg PO TID [facility] Last Admin: 11/03/16 19:04 Dose: 200 mg Promethazine HCl (Phenergan Syrup) 6.25 mg PO Q4H PRN PRN Reason: Cough Last Admin: 11/02/16 21:29 Dose: 6.25 mg - Labs Labs: 11/03/16 05:50 11/02/16 07:42 Attending/Attestation - Attestation I have personally seen and examined this patient.: Yes I have fully participated in the care of the patient.: Yes I have reviewed all pertinent clinical information, including history, physical exam and plan: Yes Notes (Text): this patient was seen and evaluated earlier. Patient's family was at bedside. CT scan was reviewed. Splenomegaly gallstones. Calcified cyst On examination abdomen soft no tenderness History of anemia and drop in blood count now stable. Patient presently admitted with urinary tract infection chronic kidney disease Would recommend follow-up of the hemoglobin and hematocrit, follow-up and studies B12 and folate, hepatitis profile. iiron studies reviewed not typically for iron deficiency Patient would benefit from elective endoscopy evaluation to rule out any varices in view of the splenomegaly. We would also recommend colonoscopic evaluation in view of his anemia which can be done electively as patient has no active bleeding presently and hemoglobin has been stable Patient has a microcytic anemia would also consider thalassemia as a differential diagnosis request for hemoglobin electrophoresis
--- NOTE | 2016-11-03 12:23 | CT ---
PROCEDURE: CT Chest without contrast HISTORY: hyponatremia/r/o malignancy COMPARISON: TECHNIQUE: Contiguous axial images were obtained through the chest without intravenous contrast enhancement. Sagittal and coronal reconstructions were performed. Maximum intensity projection (MIP) reconstructed images in the following planes: Radiation dose (DLP): 528.76 mGy-cm. This CT exam was performed using one or more of the following dose reduction techniques: Automated exposure control, adjustment of the mA and/or kV according to patient size, and/or use of iterative reconstruction technique. FINDINGS: LUNGS: Hyperinflation, manifestations of COPD. No active pulmonary disease. Linear scarring at both lung bases. MEDIASTINUM: Unremarkable thoracic aorta. No aneurysm. Cardiomegaly. No evidence of acute, significant cardiovascular disease. Dilated main pulmonary artery 3.7 cm in diameter consistent with pulmonary arterial hypertension. No lymphadenopathy. PLEURA: No pleural fluid. No pneumothorax. Focal pleural thickening along the right BONES: No fracture. No destructive lesion. Multilevel degenerative changes primarily marginal and non marginal osteophyte formation and disc space narrowing. UPPER ABDOMEN: Multiple 1 cyst with thin walled calcified rims consistent with prior infectious/inflammatory process most likelyEchinoccal cysts Cholelithiasis without CT evidence of acute cholecystitis. OTHER FINDINGS: Calcified mass benign-appearing left breasts. IMPRESSION: No significant intrathoracic abnormalities. Additional benign and/or incidental findings described above.
--- NOTE | 2016-11-03 15:49 | PN ---
SUBJECTIVE: The patient is an 81 years old, seen and examined, states she is doing better. No fever, no chills, no nausea, vomiting, and no diarrhea. Cough is better. PHYSICAL EXAMINATION: VITAL SIGNS: She is afebrile, pulse 72, respirations 20, blood pressure 129/58. LUNGS: Bilateral fair air flow. No rhonchi or crackle. HEART: S1 and S2, audible. ABDOMEN: Soft, obese, nontender, no rebound, no guarding. NEUROLOGICALLY: She is awake and alert; able to communicate, although there is a language barrier; granddaughter by the bedside who is stating that she feels a lot better. LABORATORY DATA: WBC is 2.4, hemoglobin 9.5, hematocrit 28.5, platelet of 216. Chemistry; sodium 125, potassium 3.8, chloride 92, CO2 of 24, BUN 18, creatinine 1.8, blood sugar of 135, TSH is 0.04. Urine culture is positive for Citrobacter freundii sensitive to Cipro. ASSESSMENT AND PLAN: 1. Citrobacter freundii urinary tract infection. 2. Hypokalemia. 3. Leukopenia. 4. Anemia. PLAN: We will discontinue telemetry. Request Dr. Manriquez to see the patient to evaluate for leukopenia. Followup her CBC and CMP in a.m. According to granddaughter, she never had workup done for anemia including upper endoscopy or colonoscopy. She is anxious to go home and we have CAT scan report. We will follow up on CBC and CMP in a.m. If her sodium seems to be tending up and white count seem to be tending up, we will make discharge plan in a.m. Ellen Cota MD
--- NOTE | 2016-11-03 16:04 | CP.PCM.PN ---
Subjective - Date & Time of Evaluation Date of Evaluation: 11/03/16 Time of Evaluation: 10:50 - Subjective Subjective: Comfortable, not in distress, less lower abdominal pain, no fevers. Objective - Vital Signs/Intake and Output Vital Signs (last 24 hours): Temp Pulse Resp BP Pulse Ox 98.4 F 72 20 101/45 L 96 11/03/16 06:00 11/03/16 06:00 11/03/16 06:00 11/03/16 06:00 11/03/16 06:00 Intake and Output: 11/03/16 11/03/16 06:59 18:59 Intake Total 2019 Balance 2019 - Medications Medications: Current Medications Acetaminophen (Tylenol 325mg Tab) 650 mg PO Q6H PRN PRN Reason: Fever >100.4 F Amlodipine Besylate (Norvasc) 10 mg PO DAILY [facility] Last Admin: 11/02/16 09:28 Dose: 10 mg Ceftriaxone Sodium (Rocephin 1 Gram Ivpb) 1 gm in 100 mls @ 100 mls/hr IVPB DAILY [facility] PRN Reason: Protocol Last Admin: 11/02/16 09:28 Dose: 100 mls/hr Sodium Chloride (Sodium Chloride 0.9%) 1,000 mls @ 100 mls/hr IV .Q10H [facility] Last Admin: 11/03/16 04:59 Dose: 100 mls/hr Levothyroxine Sodium (Synthroid) 25 mcg PO DAILY [facility] Last Admin: 11/02/16 09:28 Dose: 25 mcg Non-Formulary Medication (Bisoprolol [Zebeta]) 5 mg PO DAILY [facility] Last Admin: 11/02/16 09:02 Dose: Not Given Phenazopyridine HCl (Pyridium) 200 mg PO TID [facility] Last Admin: 11/02/16 19:00 Dose: 200 mg Promethazine HCl (Phenergan Syrup) 6.25 mg PO Q4H PRN PRN Reason: Cough Last Admin: 11/02/16 21:29 Dose: 6.25 mg - Labs Labs: 11/03/16 05:50 11/02/16 07:42 - Constitutional Appears: Non-toxic, No Acute Distress - Head Exam Head Exam: NORMAL INSPECTION - Neck Exam Neck Exam: absent: Meningismus - Respiratory Exam Respiratory Exam: Decreased Breath Sounds - Cardiovascular Exam Cardiovascular Exam: +S1, +S2 - GI/Abdominal Exam GI & Abdominal Exam: Soft. absent: Tenderness Assessment and Plan - Assessment and Plan (Free Text) Plan: Assessment Consider sepsis due to urinary tract infection due to Citrobacter hypothyroidism HTN obesity with BMI 31 Plan continue Rocephin day 3; CT A/P does not show hydronephrosis - target 7 days of therapy - may be switched to PO antibiotics when ready for discharge discussed with Dr. Cota will continue to monitor clinically
[2016-11-04 07:36] LABS: MEAN CELL VOLUME 77.1 fl (80.0-105.0); MEAN CORPUSCULAR HEMOGLOBIN 25.7 pg (25.0-35.0); MEAN CORPUSCULAR HGB CONC 33.3 g/dl (31.0-37.0); MEAN PLATELET VOLUME 8.2 fl (7.0-11.0); RBC 3.89 10^6/uL (3.5-6.1); RED CELL DISTRIBUTION WIDTH 14.1 % (11.5-14.5); WHITE BLOOD COUNT 3.1 10^3/ul (4.5-11.0)
[2016-11-04 07:47] LABS: ALB/GLOB RATIO 1.1 (1.1-1.8); ALBUMIN 3.8 g/dL (3.0-4.8); CALCIUM 9.2 mg/dL (8.4-10.5)
[2016-11-04 08:36] VITALS: PULSE 60; RESP 18; TEMP 97.9; O2SAT 93
--- NOTE | 2016-11-04 09:28 | CP.PCM.PN ---
Subjective - Date & Time of Evaluation Date of Evaluation: 11/04/16 Time of Evaluation: 08:50 - Subjective Subjective: S&E at bedside, chart reviewed. No acute overnight events reported. Denies N/V or abdominal pain. No reports of overt GI bleeding. Tolerating oral intake. Objective - Vital Signs/Intake and Output Vital Signs (last 24 hours): Temp Pulse Resp BP Pulse Ox 97.9 F 60 18 126/54 L 93 L 11/04/16 08:00 11/04/16 08:00 11/04/16 08:00 11/04/16 08:00 11/04/16 08:00 Intake and Output: 11/04/16 11/04/16 06:59 18:59 Intake Total 540 Balance 540 - Medications Medications: Current Medications Acetaminophen (Tylenol 325mg Tab) 650 mg PO Q6H PRN PRN Reason: Fever >100.4 F Amlodipine Besylate (Norvasc) 10 mg PO DAILY COUNTS INCLUDE 234 BEDS AT THE [facility] Last Admin: 11/03/16 09:56 Dose: 10 mg Ceftriaxone Sodium (Rocephin 1 Gram Ivpb) 1 gm in 100 mls @ 100 mls/hr IVPB DAILY TOÑA PRN Reason: Protocol Last Admin: 11/03/16 09:56 Dose: 100 mls/hr Levothyroxine Sodium (Synthroid) 25 mcg PO DAILY COUNTS INCLUDE 234 BEDS AT THE [facility] Last Admin: 11/03/16 09:56 Dose: 25 mcg Non-Formulary Medication (Bisoprolol [Zebeta]) 5 mg PO DAILY COUNTS INCLUDE 234 BEDS AT THE [facility] Last Admin: 11/03/16 10:02 Dose: Not Given Phenazopyridine HCl (Pyridium) 200 mg PO TID COUNTS INCLUDE 234 BEDS AT THE [facility] Last Admin: 11/03/16 19:04 Dose: 200 mg Promethazine HCl (Phenergan Syrup) 6.25 mg PO Q4H PRN PRN Reason: Cough Last Admin: 11/02/16 21:29 Dose: 6.25 mg - Labs Labs: 11/04/16 07:30 11/04/16 07:30 - Constitutional Appears: No Acute Distress - Head Exam Head Exam: NORMOCEPHALIC - Eye Exam Eye Exam: Normal appearance. absent: Scleral icterus - ENT Exam ENT Exam: Mucous Membranes Moist - Neck Exam Neck Exam: Normal Inspection - Respiratory Exam Respiratory Exam: NORMAL BREATHING PATTERN. absent: Respiratory Distress - Cardiovascular Exam Cardiovascular Exam: +S1, +S2 - GI/Abdominal Exam GI & Abdominal Exam: Soft, Normal Bowel Sounds. absent: Distended, Guarding, Tenderness, Organomegaly, Rebound - Extremities Exam Extremities Exam: Normal Capillary Refill. absent: Calf Tenderness, Pedal Edema - Neurological Exam Neurological Exam: Alert, Awake, Oriented x3 - Skin Skin Exam: Dry, Warm Assessment and Plan - Assessment and Plan (Free Text) Assessment: Anemia and drop in blood count and no obvious bleeding no complaints. Etiology is probably multifactorial history of chronic kidney disease , iron deficiency pattern also has to be ruled out never had a EGD and colonoscopy in the past, ct scan negative for retroperitoneal bleed or malignancy., differential thalasemia hyponatremia, improved Urinary tract infection h/o hypothyroidism h/o hypertension PLAN: Stool for occult blood Follow hemoglobin and hematocrit continue antibiotics as per ID On Pyridium Monitor electrolytes check vit b12 and folate Patient would benefit from elective endoscopy evaluation to rule out any varices in view of the splenomegaly. As well as colonoscopy which can be done electively as patient has no active bleeding presently and hemoglobin has been stable Seen and discussed with Dr. Tanner.
[2016-11-04] MEDS: Levothyroxine 25 MCG TAB PO SCH (11:00)
[2016-11-04 11:04] VITALS: BP 126/49
[2016-11-04] MEDS: BISOPROLOL 5 MG PO SCH (13:12)
[2016-11-04] MEDS: cefTRIAXone 1 gm 1 GM/100 ML BAG IVPB SCH (13:12)
[2016-11-04 16:58] LABS: HEPATITIS B SURFACE AG NEGATIVE (NEGATIVE)
[2016-11-04 17:04] LABS: HEPATITIS A IGM NEGATIVE (NEGATIVE)
[2016-11-04 17:09] LABS: HEPATITIS B CORE AB NEGATIVE (NEGATIVE)
[2016-11-04 17:17] LABS: HEPATITIS C ANTIBODY NEGATIVE (NEGATIVE)
[2016-11-04 17:44] LABS: FOLATE > 20.0 ng/mL
--- NOTE | 2016-11-05 06:03 | PN ---
DATE: 11/04/2016 SUBJECTIVE: The patient has no complaints. Denies any chest pain, shortness of breath, or headaches. She is ambulating. myself. PHYSICAL EXAMINATION: VITAL SIGNS: Temperature is 97.3, pulse 64, blood pressure 131/64, and respirations 20. GENERAL: The patient is lying in bed, flat, comfortable. HEENT: No oral lesion. Anicteric sclerae. Moist mucosa. NECK: No JVD, adenopathy, or thyromegaly. CARDIOVASCULAR: S1 and S2, regular. No murmurs, rubs, or gallops. LUNGS: Clear to auscultation bilaterally. No wheeze, rales, or rhonchi. ABDOMEN: Bowel sounds are positive, soft, nontender and nondistended. EXTREMITIES: No cyanosis, clubbing or edema. ASSESSMENT: 1. Hyponatremia, resolved. 2. Hypothyroidism. 3. Hypertension. 4. Chronic back. 5. Nausea, improved. 6. Chronic kidney disease, stage IV. 7. Microcytic anemia. PLAN: The patient is currently comfortable. Iron saturation is acceptable. The patient's sodium has improved and her sodium is 135. Her creatinine is at 1.6. She is able to ambulate. At this point, the patient should follow up as an outpatient for management of her CKD. She most likely has stage III chronic kidney disease. Re-consult if needed. Kai Falcon MD
--- NOTE | 2016-11-05 08:26 | DS ---
HISTORY OF PRESENT ILLNESS: The patient is an 81-year-old [place] female who came to emergency room, not feeling well, having cough, had UTI, being treated as outpatient with no significant relief. She was still having some urinary symptoms, so she was referred by her primary care doctor to follow up and come to emergency room for IV antibiotics. The patient was found to be hyponatremic with the sodium of 120, probably secondary to Bactrim. She was also found to be leukopenic. Urine culture grew Citrobacter freundii, sensitive to Cipro. The patient was given IV saline with significant improvement. She started to eat. Did not have any nausea or vomiting. PHYSICAL EXAMINATION: VITAL SIGNS: She is afebrile, pulse 60, respirations 18 and blood pressure 126/54. LUNGS: Bilateral fair air flow. No rhonchi or crackle. HEART: S1 and S2 audible. ABDOMEN: Soft, nontender, no rebound, no guarding. NEUROLOGIC: The patient is awake and alert, communicative. LABORATORY DATA: WBC is 3.1, hemoglobin 10, hematocrit 30, platelets of 237. Chemistry, sodium 135, potassium 4.2, chloride 102, CO2 of 23, BUN 15, creatinine 1.6, blood sugar of 81. Urine culture positive for Citrobacter freundii, sensitive to Cipro. ASSESSMENT: 1. Hyponatremia, that has resolved. Today, her sodium is 135 and potassium 4.2. 2. Leukopenia. 3. Hypertension. 4. Hypothyroidism. PLAN: The patient is going to be discharged home today. She will resume her medications including Proctozone, multivitamin, vitamin D, Clobetasol, Zebeta, amlodipine 10 mg daily and levothyroxine 25 mcg. She was given Cipro 500 mg twice a day for 5 more days. She will follow up with her PMD for followup of anemia and leukopenia. She will follow up with her PMD in a week to follow up her sodium level. Ellen Cota MD
== END 2016-11-04 18:17 | disposition home or self-care (01) | DRG 690 ==
LOC: ED 17:13 → ERH 20:26 → 2RNO 21:40 → 5RSO 11-03 16:50
PROVIDERS: ADMIT Internal Medicine; ATTEND Internal Medicine
DX: N39.0 Urinary tract infection, site not specified (principal); N18.4 Chronic kidney disease, stage 4 (severe); E87.1 Hypo-osmolality and hyponatremia; E86.0 Dehydration; I12.9 Hypertensive chronic kidney disease with stage 1 through stage 4 chronic kidney disease, or unspecified chronic kidney disease; D50.9 Iron deficiency anemia, unspecified; E03.9 Hypothyroidism, unspecified; B96.89 Other specified bacterial agents as the cause of diseases classified elsewhere; G89.29 Other chronic pain; M54.9 Dorsalgia, unspecified; E78.5 Hyperlipidemia, unspecified; E66.9 Obesity, unspecified; J45.909 Unspecified asthma, uncomplicated; E87.6 Hypokalemia; D72.819 Decreased white blood cell count, unspecified; Z68.31 Body mass index [BMI] 31.0-31.9, adult

== ENCOUNTER 2017-10-20 22:37 | Inpatient (IN) | payer MEDICARE, MEDICAID ==
[2017-10-20 22:51] VITALS: BMI 27.4
--- NOTE | 2017-10-20 23:47 | ED PDOC ---
Arrival/HPI - General Chief Complaint: Back Pain Time Seen by Provider: 10/20/17 23:20 Historian: Family (Daughter) - Critical Care Critical Care Minutes: 60 minutes - History of Present Illness Narrative History of Present Illness (Text): 10/20/17 23:41 An 82 year old female, whose past medical history includes hypertension, is brought into the emergency department by daughter who translated with the patient's permission, for a complaint of left-sided bicep pain that began today and 1-2 week duration, intermittent, lower back pain. The patient states that the back pain is exacerbated with movement. The patient denies fevers, chills, headache, dizziness, chest pain, shortness of breath, dyspnea on exertion, cough , abdominal pain, nausea, vomiting, diarrhea, neck pain, urinary/bowel changes, or any other complaint. PMD: Dr. Jeter Time/Duration: Other (Today/ 1-2 weeks) Symptom Onset: Sudden Symptom Course: Unchanged Activities at Onset: Rest, Light Context: Home Past Medical History - Provider Review Nursing Documentation Reviewed: Yes - Infectious Disease Hx of Infectious Diseases: None - Reproductive Menopause: Yes - Cardiac Hx Cardiac Disorders: Yes Hx Hypertension: Yes - Pulmonary Hx Respiratory Disorders: No - Neurological Hx Neurological Disorder: No - HEENT Hx HEENT Disorder: Yes (glasses) Hx Cataracts: Yes (r eys sx) - Renal Hx Renal Disorder: No - Endocrine/Metabolic Hx Endocrine Disorders: Yes Hx Hypothyroidism: Yes - Hematological/Oncological Hx Blood Disorders: No - Integumentary Hx Dermatological Disorder: No - Musculoskeletal/Rheumatological Hx Musculoskeletal Disorders: No - Gastrointestinal Hx Gastrointestinal Disorders: Yes (obese) - Genitourinary/Gynecological Hx Genitourinary Disorders: No - Psychiatric Hx Psychophysiologic Disorder: No Hx Substance Use: No Family/Social History - Physician Review Nursing Documentation Reviewed: Yes Family/Social History: No Known Family HX Smoking Status: Never Smoked Hx Alcohol Use: No Hx Substance Use: No Allergies/Home Meds Allergies/Adverse Reactions: Allergies No Known Allergies Allergy (Verified 10/20/17 22:51) Home Medications: Home Meds Medication Instructions Recorded Confirmed Ergocalciferol (Vitamin D2) 1.25 mg PO .WEEKLY 10/31/16 10/20/17 [Vitamin D2] Metoprolol Succinate [Toprol Xl] 100 mg PO DAILY 10/20/17 10/20/17 Review of Systems - Physician Review All systems were reviewed & negative as marked: Yes - Review of Systems Constitutional: absent: Fevers Respiratory: absent: SOB, Cough Cardiovascular: absent: Chest Pain, MIGUEL Gastrointestinal: absent: Abdominal Pain, Stool Changes, Diarrhea, Nausea, Vomiting Musculoskeletal: Back Pain (Lower back pain exacerbated with movement.), Other ( Left bicep pain. ). absent: Neck Pain Neurological: absent: Headache, Dizziness Physical Exam - Physical Exam Narrative Physical Exam (Text): 10/20/17 23:48 Gen: VS reviewed, alert, well developed, well nourished, nontoxic, mild distress. ENT: Normal pharynx. Eye: EOMI, PERRL. Neck: No JVD, supple, no adenopathy. CV: Regular rate, regular rhythm, no rubs, no murmur, no gallops, S1, S2, pulses equal and strong. Pulm: No distress, clear to auscultation, no wheeze, no rhonchi, breath sounds equal, no rales. Abd: Soft, non-tender, no guarding, no rebound, no rigidity, normal bowel sounds. Ext: No edema. Questionable tenderness to the left bicep area. No bruising. No rash. Full ROM of shoulder and elbow. Neurovascularly intact. Skin: Good color, no rash, no cyanosis. Psych: Responds appropriately to questions, normal affect. Neuro: Oriented x 3, CN2-12 intact grossly, motor intact, sensation intact. Vital Signs Reviewed: Yes Vital Signs Temp Pulse Resp BP Pulse Ox 10/21/17 00:10 83 22 153/64 H 100 10/20/17 22:53 98.0 F 73 18 169/77 H 96 Temperature: Afebrile Blood Pressure: Hypertensive Pulse: Regular Respiratory Rate: Normal Appearance: Positive for: Well-Appearing, Non-Toxic, Comfortable Pain Distress: None Mental Status: Positive for: Alert and Oriented X 3 Medical Decision Making ED Course and Treatment: 10/20/17 23:49 Impression: An 82 year old female presents to the emergency department with a complaint of left bicep pain and lower back pain. Plan: -- EKG -- Cervical Spine, Left Humerus, Lumbar Spine, Left Shoulder, Chest X-Rays -- Labs -- Tylenol -- Reassess and disposition Progress Notes: 10/20/17 23:58: Initial request to call code heart. 10/21/17 00:03: Code heart called. 10/21/17 00:12: Case discussed in detail with Dr. Brewer. Would like EKG forwarded so he can review. 10/21/17 00:16: Discussed case in detail with Dr. Brewer who agrees EKG is suspicious and will take patient to cath lab manager. Requests patient be administered Integrilin bolus and drip and Plavix 600mg 10/21/17 00:22 patient presented with atypical left arm pain without chest pain, EKG was performed and found to be suspicious for acute PA, interventional cardiology was contacted and confirmed suspicion and will take patient to the cath lab manager. 10/21/17 00:27: Case discussed in detail with Dr. Eastman. Admission refused. 10/21/17 00:38 Admit accepted to hospitalist service under Dr. Alyssa Mcfarland 10/21/17 00:41: Correction in admission pattern. Admission will go to Dr. Nicolas. 10/21/17 00:51: Case discussed with Dr. Nicolas who accepts patient to his service. 10/21/17 01:56: As per Dr. Brewer, changed admission from Dr. Nicolas to Dr. Cota. - Critical Care Critical Care Minutes: 60 minutes - Lab Interpretations Lab Results: 10/21/17 00:10 10/21/17 00:10 Lab Results 10/21/17 00:10: TSH 3rd Generation 11.50 H 10/21/17 00:10: Sodium 140, Potassium 3.9, Chloride 104, Carbon Dioxide 22, Anion Gap 18, BUN 24 H, Creatinine 1.1, Est GFR ( Amer) 57, Est GFR (Non- Af Amer) 47, Random Glucose 131 H, Calcium 9.6, Total Bilirubin 0.4, AST 31, ALT 24, Alkaline Phosphatase 93, Lactate Dehydrogenase 478, Total Creatine Kinase 101, Troponin I 0.81 H* D, Total Protein 8.5 H, Albumin 4.6, Globulin 3.9 , Albumin/Globulin Ratio 1.2 10/21/17 00:10: WBC 6.8 D, RBC 5.03, Hgb 12.5 D, Hct 37.3, MCV 74.2 L, MCH 24.9 L, MCHC 33.5, RDW 15.6 H, Plt Count 294, MPV 8.9, Gran % 76.2 H, Lymph % ( Auto) 16.6 L, [place] % (Auto) 5.6, Eos % (Auto) 1.3 L, Baso % (Auto) 0.3, Gran # 5.14, Lymph # (Auto) 1.1 L, [place] # (Auto) 0.4, Eos # (Auto) 0.1, Baso # (Auto) 0.02 I have reviewed the lab results: Yes - RAD Interpretation Narrative RAD Interpretations (Text): 10/21/17 00:45 Chest X-ray read and interpreted by me shows no focal infiltrates. No pneumothorax. No wide mediastinum. Radiology Orders: 10/21/17 00:08 CHEST PORTABLE [RAD] Stat - EKG Interpretation EKG Interpretation (Text): 10/21/17 00:24 snus rhythm at 66 bpm, nmlqrs, st elevations in leads v1-v3, st depresisons in leads I/AVL/V4-V6 Interpreted by ED Physician: Yes Type: 12 lead EKG - Medication Orders Current Medication Orders: Amlodipine Besylate (Norvasc) 10 mg PO DAILY [facility] Aspirin (Aspirin) 325 mg PO DAILY [facility] Atorvastatin Calcium (Lipitor) 40 mg PO DIN TOÑA Clopidogrel Bisulfate (Plavix) 75 mg PO DAILY [facility] Famotidine (Pepcid) 10 mg PO 1000,2200 TOÑA Heparin Sodium (Porcine) (Heparin) 5,000 units SC Q12 TOÑA PRN Reason: Protocol Eptifibatide (Integrilin) 75 mg in 100 mls @ 5.806 mls/hr IV .[id number] TOÑA; 1 MCG/KG/MIN PRN Reason: Protocol Last Admin: 10/21/17 00:40 Dose: 5.806 mls/hr eMAR Start Stop Document 10/21/17 00:40 CNR (Rec: 10/21/17 00:40 CNR [id number]) Intravenous Solution Start Date 10/21/17 Start Time 00:40 Metoprolol Succinate (Toprol Xl) 100 mg PO DAILY TOÑA Discontinued Medications Acetaminophen (Tylenol 325mg Tab) 975 mg PO STAT STA Stop: 10/20/17 23:23 Last Admin: 10/20/17 23:53 Dose: Not Given Non-Admin Reason: Patient Refused Aspirin (Aspirin) 325 mg PO STAT STA Stop: 10/21/17 00:09 Last Admin: 10/21/17 00:19 Dose: 325 mg Clopidogrel Bisulfate (Plavix) 600 mg PO STAT STA Stop: 10/21/17 00:19 Last Admin: 10/21/17 00:21 Dose: 600 mg Eptifibatide (Integrilin Bolus) 13.1 mg 0.18 mg/kg (13.1 mg) IV ONCE ONE Stop: 10/21/17 00:20 Last Admin: 10/21/17 00:21 Dose: 13.1 mg eMAR Start Stop Document 10/21/17 00:21 CNR (Rec: 10/21/17 00:22 CNR [id number]) Intravenous Solution Start Date 10/21/17 Start Time 00:22 Eptifibatide (Integrilin Bolus) 13.1 mg 0.18 mg/kg (13.1 mg) IV ONCE ONE Stop: 10/21/17 00:33 Last Admin: 10/21/17 00:41 Dose: 13.1 mg eMAR Start Stop Document 10/21/17 00:41 CNR (Rec: 10/21/17 00:42 CNR [id number]) Intravenous Solution Start Date 10/21/17 Start Time 00:42 - Scribe Statement The provider has reviewed the documentation as recorded by the Torres Samuel Provider Scribe Attestation: All medical record entries made by the Scribe were at my direction and personally dictated by me. I have reviewed the chart and agree that the record accurately reflects my personal performance of the history, physical exam, medical decision making, and the department course for this patient. I have also personally directed, reviewed, and agree with the discharge instructions and disposition. Disposition/Present on Arrival - Present on Arrival Any Indicators Present on Arrival: No History of DVT/PE: No History of Uncontrolled Diabetes: No Urinary Catheter: No History of Decub. Ulcer: No History Surgical Site Infection Following: None - Disposition Have Diagnosis and Disposition been Completed?: Yes Diagnosis: STEMI (ST elevation myocardial infarction) Disposition: HOSPITALIZED Disposition Time: 00:38 Patient Plan: Admission Patient Problems: Current Active Problems Problem Status Onset STEMI (ST elevation myocardial infarction) Acute Condition: FAIR
[2017-10-21] MEDS ORDERED: Eptifibatide 20 mg/10mL Inj IV ONE ×2 (00:19→00:32)
[2017-10-21] MEDS ORDERED: Eptifibatide 20 mg/10mL Inj IVP ONE (00:22)
[2017-10-21] MEDS ORDERED: Eptifibatide 0.75 mg/ml 75 MG/100 ML BOTTLE IV ONE (00:22)
[2017-10-21 00:24] LABS: BASO # 0.02 K/mm3 (0.0-2.0); BASO % 0.3 % (0.0-3.0); EOS # 0.1 (0.0-0.7); EOS % 1.3 % (1.5-5.0); GRAN # 5.14 (1.4-6.5); GRAN % 76.2 % (50.0-68.0); HEMOGLOBIN 12.5 g/dL (12.0-16.0); LYMPH # 1.1 (1.2-3.4); LYMPH % 16.6 % (22.0-35.0); MEAN CELL VOLUME 74.2 fl (80.0-105.0); MEAN CORPUSCULAR HEMOGLOBIN 24.9 pg (25.0-35.0); MEAN CORPUSCULAR HGB CONC 33.5 g/dl (31.0-37.0); MEAN PLATELET VOLUME 8.9 fl (7.0-11.0); MONO # 0.4 (0.1-0.6); MONO % 5.6 % (1.0-6.0); RBC 5.03 10^6/uL (3.5-6.1); RED CELL DISTRIBUTION WIDTH 15.6 % (11.5-14.5); WHITE BLOOD COUNT 6.8 10^3/ul (4.5-11.0)
[2017-10-21] MEDS ORDERED: Eptifibatide 0.75 mg/ml 75 MG/100 ML BOTTLE IV SCH (00:30)
[2017-10-21] MEDS ORDERED: Lidocaine PF 2% (5 ml) Inj (For Cardiac Arrhy) ONE ×2 (00:32→01:10)
[2017-10-21] MEDS ORDERED: Phenylephrine 10 mg/ml Inj ONE (00:32)
[2017-10-21] MEDS ORDERED: Midazolam 2 MG/2 ML VIAL ONE ×3 (00:33→01:24)
[2017-10-21] MEDS ORDERED: Nitroglycerin 50mg in D5W 50 MG/250 ML BOTTLE IV ONE (00:34)
[2017-10-21] MEDS ORDERED: Iodixanol 320 MG/ML 200 ML BOTTLE IV ONE (00:34)
[2017-10-21] MEDS ORDERED: Iodixanol 320 MG/ML 100 ML BOTTLE IV ONE (00:34)
[2017-10-21] MEDS ORDERED: Iohexol 350mgl/ml 50 ML ONE (00:34)
[2017-10-21 00:38] LABS: ALB/GLOB RATIO 1.2 (1.1-1.8); ALBUMIN 4.6 g/dL (3.0-4.8); CALCIUM 9.6 mg/dL (8.4-10.5)
[2017-10-21 01:00] LABS: TROPONIN I 0.81 ng/mL
--- NOTE | 2017-10-21 02:40 | CARDCATH ---
Copied To: Milad Brewer MD Attending MD: Milad Brewer MD PROCEDURE DATE: 10/21/2017 HISTORY: The patient is an 82-year-old woman who developed left arm pain earlier this morning. They finally brought her to the emergency room where she was found to have ST elevations across the anterior precordium consistent with an anterior wall myocardial infarction. A code heart was called. The patient's past medical history includes hypertension. An emergency left heart catheterization with coronary arteriography, left ventriculogram as well as emergency PTCA and stent of an occluded LAD. The patient was pretreated in the emergency room with IV Integrilin as well as p.o. Plavix and aspirin. The right femoral artery was cannulated with a 6-American sheath. There were no complications. I performed moderate sedation which included the presence of an independent trained observer that assisted in monitoring the patient's level of consciousness and physiologic status. After administration of Versed and fentanyl, my intra service time was 30 minutes. The findings on catheterization revealed a right dominant circulation. The RCA revealed diffuse atherosclerosis with multiple 20-30% lesions throughout its course. There were no critical lesions noted. The left main artery was calcified with intimal irregularities without critical lesions. The LAD was diffusely diseased with an occluded LAD at the takeoff of the septal sap pi architect. The circumflex artery and obtuse marginal branches revealed diffuse atherosclerosis with 60% stenosis in the proximal portion. The patient was given 4000 of intravenous heparin along with her IV Integrilin. The ACT was 300. Under fluoroscopic guide, the guiding catheter was placed in the ostium of the left main artery and 0.014 ATW wire was used to cross the occluded LAD. Initial dilatation was performed with a 2 x 12 balloon. This was followed by 2.5 x 12 mm drug-eluting stent which was deployed at 14 atmospheres of pressure. Repeat coronary arteriography revealed an excellent result with resolution of flow through the anterior wall with ROLF III flow. No residual stenosis was noted. Angio-Seal was used to close the femoral artery site. The patient tolerated the procedure well. In summary, the procedure was successful for an emergency PTCA and stent of an occluded LAD at the takeoff of the septal sap pi architect. A HERLINDA stent was utilized. Cardiac catheterization revealed occluded LAD as well as 60% stenoses in the proximal circumflex artery. Given these findings, we will keep the patient on Integrilin for the next 18 hours. She will be going to the ICU for continued care. Milad Brewer MD
--- NOTE | 2017-10-21 03:04 | CP.PCM.CON ---
<Bryon Wilson - Last Filed: 10/21/17 05:50> History of Present Illness - History of Present Illness History of Present Illness: CONSULT NOTE FOR HOSPITALIST TEAM Bryon Wilson PGY1 82 y/o F with pmhx of HTN presented to ED with complaints of ongoing L low back pain that began 2 weeks ago and pain in the L arm that had began yesterday morning and remained constant until the evening. She reports she had never had this type of pain before in the L arm. Pt had tried taking tylenol for the pain with no relief. In the ED, EKG showed ST elevations in anteroseptal leads with reciprocal ST depressions along with elevated troponin level. Case was discussed with Dr. Brewer and pt was sent to [facility] for stenting. Pt was found to have an occluded mid LAD and a drug eluting stent x 1 was placed. Pt was admitted to CCU after after stent placement. She tolerated the procedure well and reports no acute complaints. She denies chest pain, shortness of breath, dizziness, groin pain, abdominal pain, nausea, vomiting or diarrhea. Pmhx: HTN Surghx: none Allergies: NKDA Social: Lives with family, bulgarian speaking, denies smoking, drinking. Meds: amlodipine 10mg. metoprolol 100, ergocalciferol 1.25 PMD: Dr. Jeter Review of Systems - Review of Systems All systems: reviewed and no additional remarkable complaints except (as per HPI ) Past Patient History - Infectious Disease Hx of Infectious Diseases: None - Past Social History Smoking Status: Never Smoked - CARDIAC Hx Cardiac Disorders: Yes Hx Hypertension: Yes - PULMONARY Hx Respiratory Disorders: No - NEUROLOGICAL Hx Neurological Disorder: No - HEENT Hx HEENT Problems: Yes (glasses) Hx Cataracts: Yes (r eys sx) - RENAL Hx Chronic Kidney Disease: No - ENDOCRINE/METABOLIC Hx Endocrine Disorders: Yes Hx Hypothyroidism: Yes - HEMATOLOGICAL/ONCOLOGICAL Hx Blood Disorders: No - INTEGUMENTARY Hx Dermatological Problems: No - MUSCULOSKELETAL/RHEUMATOLOGICAL Hx Musculoskeletal Disorders: No Hx Falls: No - GASTROINTESTINAL Hx Gastrointestinal Disorders: Yes (obese) - GENITOURINARY/GYNECOLOGICAL Hx Genitourinary Disorders: No - PSYCHIATRIC Hx Psychophysiologic Disorder: No - SURGICAL HISTORY Hx Surgeries: No Meds Allergies/Adverse Reactions: Allergies Allergy/AdvReac Type Severity Reaction Status Date / Time No Known Allergies Allergy Verified 10/20/17 22:51 - Medications Medications: Current Medications Amlodipine Besylate (Norvasc) 10 mg PO DAILY [facility] Aspirin (Aspirin) 325 mg PO DAILY [facility] Atorvastatin Calcium (Lipitor) 40 mg PO DIN [facility] Clopidogrel Bisulfate (Plavix) 75 mg PO DAILY [facility] Famotidine (Pepcid) 10 mg PO 1000,2200 [facility] Heparin Sodium (Porcine) (Heparin) 5,000 units SC Q12 TOÑA PRN Reason: Protocol Eptifibatide (Integrilin) 75 mg in 100 mls @ 5.806 mls/hr IV .[id number] TOÑA; 1 MCG/KG/MIN PRN Reason: Protocol Last Admin: 10/21/17 00:40 Dose: 5.806 mls/hr Metoprolol Succinate (Toprol Xl) 100 mg PO DAILY [facility] Physical Exam - Constitutional Appears: Well, Non-toxic, No Acute Distress - Head Exam Head Exam: NORMAL INSPECTION - Eye Exam Eye Exam: EOMI, Normal appearance - ENT Exam ENT Exam: Mucous Membranes Moist - Neck Exam Neck exam: Positive for: Normal Inspection - Respiratory Exam Respiratory Exam: Clear to Auscultation Bilateral, NORMAL BREATHING PATTERN - Cardiovascular Exam Cardiovascular Exam: REGULAR RHYTHM, +S1, +S2 - GI/Abdominal Exam GI & Abdominal Exam: Normal Bowel Sounds, Soft Additional comments: R inguinal dressing in place from femoral access. No signs of hematoma - Extremities Exam Extremities exam: Positive for: normal inspection. Negative for: calf tenderness - Neurological Exam Neurological exam: Alert, Oriented x3 - Psychiatric Exam Psychiatric exam: Normal Affect, Normal Mood - Skin Skin Exam: Dry, Intact Results - Vital Signs Recent Vital Signs: Last Vital Signs Temp 98 F 10/21/17 02:11 Pulse 63 10/21/17 02:12 Resp 18 10/21/17 02:12 BP 156/83 H 10/21/17 00:47 Pulse Ox 94 L 10/21/17 02:12 - Labs Result Diagrams: 10/21/17 00:10 10/21/17 00:10 Assessment & Plan - Assessment and Plan (Free Text) Assessment: 82 y/o F with pmhx of HTN admitted to CCU s/p cardiac cath with drug eluting stent x1 placement in mid LAD. Pt arrived to ED with new onset L arm pain and was found to have ST elevations in anteroseptal leads on EKG and an elevated troponin level. She was sent to [facility] and found to have occlusion of mid LAD with subsequent placement of drug eluting stent x 1 placed mid LAD. Pt admitted to CCU for observation Plan: STEMI s/p cardiac cath with drug eluting stent placement - pt had ST elevation in V1, V2, V3 on initial EKG in ED, evaluated by Dr. Brewer and sent to [facility] - s/p cardiac cath. Mid LAD occlusion with drug eluting stent placement x 1 - Eptifibatide 0.75 drip for 18 hours - Start aspirin 325 - Start atorvastatin 40mg - Start Plavix 75 - Monitor am CMP for electrolyte abnormalities. Replete as necessary - Echo in am - NS @100mL/hr Hypertension - Continue home toprol 100 - Continue home amlodipine 10mg GI/DVT/DIET: Pepcid/Hep/HHD Case seen, discussed and reviewed with attending physician, Dr. Nicolas <Darryl Nicolas P - Last Filed: 10/21/17 07:43> Meds - Medications Medications: Current Medications Amlodipine Besylate (Norvasc) 10 mg PO DAILY [facility] Aspirin (Aspirin) 325 mg PO DAILY [facility] Atorvastatin Calcium (Lipitor) 40 mg PO DIN [facility] Clopidogrel Bisulfate (Plavix) 75 mg PO DAILY [facility] Famotidine (Pepcid) 10 mg PO 1000,2200 [facility] Heparin Sodium (Porcine) (Heparin) 5,000 units SC Q12 [facility] PRN Reason: Protocol Eptifibatide (Integrilin) 75 mg in 100 mls @ 5.806 mls/hr IV .[id number] TOÑA; 1 MCG/KG/MIN PRN Reason: Protocol Last Admin: 10/21/17 00:40 Dose: 5.806 mls/hr Sodium Chloride (Sodium Chloride 0.9%) 1,000 mls @ 100 mls/hr IV .Q10H [facility] Last Admin: 10/21/17 04:45 Dose: 100 mls/hr Metoprolol Succinate (Toprol Xl) 100 mg PO DAILY [facility] Results - Vital Signs Recent Vital Signs: Last Vital Signs Temp 98 F 10/21/17 06:00 Pulse 56 L 10/21/17 05:58 Resp 18 10/21/17 02:12 BP 156/83 H 10/21/17 00:47 Pulse Ox 94 L 10/21/17 02:12 - Labs Result Diagrams: 10/21/17 05:00 10/21/17 05:00 Labs: Laboratory Results - last 24 hr 10/21/17 10/21/17 10/21/17 05:00 05:00 05:00 WBC 5.1 D RBC 4.51 Hgb 10.9 L Hct 33.5 L MCV 74.3 L MCH 24.2 L MCHC 32.5 RDW 15.7 H Plt Count 255 MPV 9.2 Gran % 77.6 H Lymph % (Auto) 17.5 L Fallon % (Auto) 4.5 Eos % (Auto) 0.2 L Baso % (Auto) 0.2 Gran # 3.94 Lymph # (Auto) 0.9 L Fallon # (Auto) 0.2 Eos # (Auto) 0.0 Baso # (Auto) 0.01 Sodium 141 Potassium 3.7 Chloride 109 H Carbon Dioxide 23 Anion Gap 13 BUN 20 Creatinine 1.0 Est GFR ( Amer) > 60 Est GFR (Non-Af Amer) 53 Random Glucose 120 H Calcium 8.7 Phosphorus 3.6 Magnesium 1.8 Total Bilirubin 0.5 AST 130 H D ALT 41 Alkaline Phosphatase 68 Troponin I 56.80 H* D Total Protein 7.1 Albumin 3.7 Globulin 3.4 Albumin/Globulin Ratio 1.1 Triglycerides 143 Cholesterol 220 H LDL Cholesterol Direct 131 H HDL Cholesterol 49 Attending/Attestation - Attestation I have personally seen and examined this patient.: Yes I have fully participated in the care of the patient.: Yes I have reviewed all pertinent clinical information: Yes Notes (Text): 10/21/17 07:39 NSTEMI, LAD DIS with resolution of symptoms H/o HTN Hypothyroid, hyperlipidimia. Plan ASA, plavix, atorvastatin, continue metoprolol, norvasc, Synthyroid in 2-3 days in the lowest dose and gradually increase to avoid tachyarrythmia Echo if low ef may switch norvasc to ACEI Gi/DVT prophylaxis See orders for detail.
[2017-10-21] MEDS ORDERED: Sodium Chloride 0.9% 1,000 ML IV SCH (03:45)
[2017-10-21 05:42] LABS: BASO # 0.01 K/mm3 (0.0-2.0); BASO % 0.2 % (0.0-3.0); EOS % 0.2 % (1.5-5.0); GRAN # 3.94 (1.4-6.5); GRAN % 77.6 % (50.0-68.0); HEMOGLOBIN 10.9 g/dL (12.0-16.0); LYMPH # 0.9 (1.2-3.4); LYMPH % 17.5 % (22.0-35.0); MEAN CELL VOLUME 74.3 fl (80.0-105.0); MEAN CORPUSCULAR HEMOGLOBIN 24.2 pg (25.0-35.0); MEAN CORPUSCULAR HGB CONC 32.5 g/dl (31.0-37.0); MEAN PLATELET VOLUME 9.2 fl (7.0-11.0); MONO # 0.2 (0.1-0.6); MONO % 4.5 % (1.0-6.0); RBC 4.51 10^6/uL (3.5-6.1); RED CELL DISTRIBUTION WIDTH 15.7 % (11.5-14.5); WHITE BLOOD COUNT 5.1 10^3/ul (4.5-11.0)
[2017-10-21 06:29] LABS: ALB/GLOB RATIO 1.1 (1.1-1.8); ALBUMIN 3.7 g/dL (3.0-4.8); ALT/SGPT 41 U/L (7-56); AST/SGOT 130 U/L (14-36); BLOOD UREA NITROGEN 20 mg/dL (7-21); CALCIUM 8.7 mg/dL (8.4-10.5); GFR AFRICAN-AMERICAN > 60; GFR NON-AFRICAN AMERICAN 53
[2017-10-21 06:40] LABS: TROPONIN I 56.8 ng/mL
--- NOTE | 2017-10-21 08:55 | RAD ---
Date of service: 10/21/2017 HISTORY: chest pain COMPARISON: 10/31/2016 FINDINGS: LUNGS: No active pulmonary disease. PLEURA: No significant pleural effusion identified, no pneumothorax apparent. CARDIOVASCULAR: Normal. OSSEOUS STRUCTURES: No significant abnormalities. VISUALIZED UPPER ABDOMEN: Normal. OTHER FINDINGS: None. IMPRESSION: No active disease.
--- NOTE | 2017-10-21 09:36 | CARD ---
APPROVED REPORT Date of service: 10/20/2017 EKG Measurement Heart [id number] <Conclusion> Normal sinus rhythm with sinus arrhythmia Possible inferior infarct, age undetermined Anterior injury pattern ACUTE MD Abnormal ECG
[2017-10-21] MEDS: Metoprolol Succinate 100 mg XL Tab PO SCH (09:51)
--- NOTE | 2017-10-21 12:19 | CP.CCUPN ---
<DonLalo - Last Filed: 10/21/17 12:11> CCU Subjective - Physician Review Events Since Last Encounter (Free Text): 10/21/17 09:30 Patient seen and examined at bedside. 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 HERLINDA was placed in mid-LAD, and there was a 60% stenosis in proximal circumflex artery. Patient denies any acute complaints this morning including chest pain and shortness fo breath as well as pain at the cath site. CCU Objective - Vital Signs / Intake & Output Vital Signs (Last 4 hours): Vital Signs Pulse BP 10/21/17 09:56 138/58 L 10/21/17 09:51 55 L 138/58 L Intake and Output (Last 8hrs): Intake & Output 10/20/17 10/21/17 10/21/17 22:59 06:59 14:59 Intake Total 500 Output Total 500 Balance 0 Weight 77.564 kg Intake: IV 500 Left Forearm 500 Oral 0 Output: Urine 500 Urine, Voided 500 Stool 0 Other: # Voids Urine, Voided 1 # Bowel Movements 0 - Medications Active Medications: Active Medications Generic Name Dose Route Start Last Admin Trade Name Freq PRN Reason Stop Dose Admin Amlodipine Besylate 10 mg 10/21/17 10:00 10/21/17 09:56 Norvasc PO 10 mg DAILY [facility] Administration Aspirin 325 mg 10/21/17 10:00 10/21/17 09:56 Aspirin PO 325 mg DAILY [facility] Administration Atorvastatin Calcium 40 mg 10/21/17 17:00 Lipitor PO DIN [facility] Clopidogrel Bisulfate 75 mg 10/21/17 10:00 10/21/17 09:57 Plavix PO 75 mg DAILY [facility] Administration Famotidine 10 mg 10/21/17 10:00 10/21/17 09:52 Pepcid PO 10 mg 1000,2200 [facility] Administration Heparin Sodium (Porcine) 5,000 units 10/21/17 10:00 Heparin SC Q12 [facility] Protocol Eptifibatide 75 mg in 100 mls @ 5.806 mls/hr 10/21/17 00:30 10/21/17 00:40 Integrilin IV 5.806 mls/hr .[id number] [facility] Administration Protocol 1 MCG/KG/MIN Metoprolol Succinate 100 mg 10/21/17 10:00 10/21/17 09:51 Toprol Xl PO 100 mg DAILY [facility] Administration - Patient Studies Lab Studies: Lab Studies 10/21/17 10/21/17 10/21/17 Range/Units 06:00 05:00 05:00 WBC 5.1 D (4.5-11.0) 10^3/ul RBC 4.51 (3.5-6.1) 10^6/uL Hgb 10.9 L (12.0-16.0) g/dL Hct 33.5 L (36.0-48.0) % MCV 74.3 L (80.0-105.0) fl MCH 24.2 L (25.0-35.0) pg MCHC 32.5 (31.0-37.0) g/dl RDW 15.7 H (11.5-14.5) % Plt Count 255 (120.0-450.0) 10^3/uL MPV 9.2 (7.0-11.0) fl Gran % 77.6 H (50.0-68.0) % Lymph % (Auto) 17.5 L (22.0-35.0) % Perkins % (Auto) 4.5 (1.0-6.0) % Eos % (Auto) 0.2 L (1.5-5.0) % Baso % (Auto) 0.2 (0.0-3.0) % Gran # 3.94 (1.4-6.5) Lymph # (Auto) 0.9 L (1.2-3.4) Perkins # (Auto) 0.2 (0.1-0.6) Eos # (Auto) 0.0 (0.0-0.7) Baso # (Auto) 0.01 (0.0-2.0) K/mm3 Sodium 141 (132-148) mmol/L Potassium 3.7 (3.6-5.0) mmol/L Chloride 109 H (98-107) mmol/L Carbon Dioxide 23 (21-33) mmol/L Anion Gap 13 (10-20) BUN 20 (7-21) mg/dL Creatinine 1.0 (0.7-1.2) mg/dl Est GFR ( Amer) > 60 Est GFR (Non-Af Amer) 53 Random Glucose 120 H (70-110) mg/dL Calcium 8.7 (8.4-10.5) mg/dL Phosphorus 3.6 (2.5-4.5) mg/dL Magnesium 1.8 (1.7-2.2) mg/dL Total Bilirubin 0.5 (0.2-1.3) mg/dL AST 130 H D (14-36) U/L ALT 41 (7-56) U/L Alkaline Phosphatase 68 (38-126) U/L Troponin I ng/mL Total Protein 7.1 (5.8-8.3) g/dL Albumin 3.7 (3.0-4.8) g/dL Globulin 3.4 gm/dL Albumin/Globulin Ratio 1.1 (1.1-1.8) Triglycerides (35-160) mg/dL Cholesterol (130-200) mg/dL LDL Cholesterol Direct (0-129) mg/dL HDL Cholesterol (29-60) mg/dL Free T4 (0.78-2.19) ng/dL Total T3 1.44 (0.97-1.69) ng/mL 10/21/17 10/21/17 Range/Units 05:00 01:00 WBC (4.5-11.0) 10^3/ul RBC (3.5-6.1) 10^6/uL Hgb (12.0-16.0) g/dL Hct (36.0-48.0) % MCV (80.0-105.0) fl MCH (25.0-35.0) pg MCHC (31.0-37.0) g/dl RDW (11.5-14.5) % Plt Count (120.0-450.0) 10^3/uL MPV (7.0-11.0) fl Gran % (50.0-68.0) % Lymph % (Auto) (22.0-35.0) % Perkins % (Auto) (1.0-6.0) % Eos % (Auto) (1.5-5.0) % Baso % (Auto) (0.0-3.0) % Gran # (1.4-6.5) Lymph # (Auto) (1.2-3.4) Perkins # (Auto) (0.1-0.6) Eos # (Auto) (0.0-0.7) Baso # (Auto) (0.0-2.0) K/mm3 Sodium (132-148) mmol/L Potassium (3.6-5.0) mmol/L Chloride (98-107) mmol/L Carbon Dioxide (21-33) mmol/L Anion Gap (10-20) BUN (7-21) mg/dL Creatinine (0.7-1.2) mg/dl Est GFR ( Amer) Est GFR (Non-Af Amer) Random Glucose (70-110) mg/dL Calcium (8.4-10.5) mg/dL Phosphorus (2.5-4.5) mg/dL Magnesium (1.7-2.2) mg/dL Total Bilirubin (0.2-1.3) mg/dL AST (14-36) U/L ALT (7-56) U/L Alkaline Phosphatase (38-126) U/L Troponin I 56.80 H* D ng/mL Total Protein (5.8-8.3) g/dL Albumin (3.0-4.8) g/dL Globulin gm/dL Albumin/Globulin Ratio (1.1-1.8) Triglycerides 143 (35-160) mg/dL Cholesterol 220 H (130-200) mg/dL LDL Cholesterol Direct 131 H (0-129) mg/dL HDL Cholesterol 49 (29-60) mg/dL Free T4 0.99 (0.78-2.19) ng/dL Total T3 (0.97-1.69) ng/mL Laboratory Results - last 24 hr 10/21/17 10/21/17 10/21/17 01:00 05:00 05:00 WBC 5.1 D RBC 4.51 Hgb 10.9 L Hct 33.5 L MCV 74.3 L MCH 24.2 L MCHC 32.5 RDW 15.7 H Plt Count 255 MPV 9.2 Gran % 77.6 H Lymph % (Auto) 17.5 L Perkins % (Auto) 4.5 Eos % (Auto) 0.2 L Baso % (Auto) 0.2 Gran # 3.94 Lymph # (Auto) 0.9 L Perkins # (Auto) 0.2 Eos # (Auto) 0.0 Baso # (Auto) 0.01 Sodium Potassium Chloride Carbon Dioxide Anion Gap BUN Creatinine Est GFR ( Amer) Est GFR (Non-Af Amer) Random Glucose Calcium Phosphorus Magnesium Total Bilirubin AST ALT Alkaline Phosphatase Troponin I 56.80 H* D Total Protein Albumin Globulin Albumin/Globulin Ratio Triglycerides 143 Cholesterol 220 H LDL Cholesterol Direct 131 H HDL Cholesterol 49 Free T4 0.99 Total T3 10/21/17 10/21/17 05:00 06:00 WBC RBC Hgb Hct MCV MCH MCHC RDW Plt Count MPV Gran % Lymph % (Auto) Perkins % (Auto) Eos % (Auto) Baso % (Auto) Gran # Lymph # (Auto) Perkins # (Auto) Eos # (Auto) Baso # (Auto) Sodium 141 Potassium 3.7 Chloride 109 H Carbon Dioxide 23 Anion Gap 13 BUN 20 Creatinine 1.0 Est GFR ( Amer) > 60 Est GFR (Non-Af Amer) 53 Random Glucose 120 H Calcium 8.7 Phosphorus 3.6 Magnesium 1.8 Total Bilirubin 0.5 AST 130 H D ALT 41 Alkaline Phosphatase 68 Troponin I Total Protein 7.1 Albumin 3.7 Globulin 3.4 Albumin/Globulin Ratio 1.1 Triglycerides Cholesterol LDL Cholesterol Direct HDL Cholesterol Free T4 Total T3 1.44 Critical Care Progress Note - Nutrition Nutrition: Nutrition Category Date Time Status Heart Healthy Diet [DIET] Diets 10/21/17 Breakfast Active Assessment/Plan - Assessment and Plan (Free Text) Assessment: 82 year old female with pertinent medical history of HTN presents with STEMI s/ p HERLINDA to LAD, under ICU management for post-cath monitoring and maintenance of integrillin drip. Plan Neuro: - Continue normothermia Pulm: - Maintain sats above 92% Cardio: - Continue ASA, Lipitor, Toprol, Plavix, Norvasc - Continue with Integrilin drip until 6:00PM - Maintain MAP > 65 GI: - Continue with pepcid for GI PPX : - Maintain euvolemia - Monitor electrolytes Endo: - Maintain euglycemia ID: - No ID issues Heme: - Hold heparin in view of recent cath <Andrea Dinero - Last Filed: 10/22/17 09:59> CCU Objective - Vital Signs / Intake & Output Intake and Output (Last 8hrs): Intake & Output 10/21/17 10/22/17 10/22/17 22:59 06:59 14:59 Intake Total 500 500 Output Total 500 500 Balance 0 0 Weight 161 lb 14.4 oz Intake: IV 500 100 Left Forearm 500 100 Oral 0 400 Output: Urine 500 500 Urine, Voided 500 500 Stool 0 0 Other: # Voids Urine, Voided 1 1 # Bowel Movements 0 0 - Medications Active Medications: Active Medications Generic Name Dose Route Start Last Admin Trade Name Paulq PRN Reason Stop Dose Admin Amlodipine Besylate 10 mg 10/21/17 10:00 10/21/17 09:56 Norvasc PO 10 mg DAILY [facility] Administration Aspirin 325 mg 10/21/17 10:00 10/21/17 09:56 Aspirin PO 325 mg DAILY [facility] Administration Atorvastatin Calcium 40 mg 10/21/17 17:00 10/21/17 17:11 Lipitor PO 40 mg DIN [facility] Administration Clopidogrel Bisulfate 75 mg 10/21/17 10:00 10/21/17 09:57 Plavix PO 75 mg DAILY [facility] Administration Famotidine 10 mg 10/21/17 10:00 10/21/17 22:38 Pepcid PO 10 mg 1000,2200 [facility] Administration Heparin Sodium (Porcine) 5,000 units 10/21/17 10:00 10/21/17 22:38 Heparin SC 5,000 units Q12 [facility] Administration Protocol Levothyroxine Sodium 25 mcg 10/22/17 06:30 10/22/17 05:39 Synthroid PO 25 mcg 0630 [facility] Administration Metoprolol Succinate 100 mg 10/21/17 10:00 10/21/17 09:51 Toprol Xl PO 100 mg DAILY [facility] Administration - Patient Studies Lab Studies: Lab Studies 10/22/17 10/21/17 10/21/17 Range/Units 05:30 06:00 01:00 Free T4 0.99 (0.78-2.19) ng/dL Thyroxine (T4) 7.5 (5.5-11.0) ug/dL Total T3 1.44 (0.97-1.69) ng/mL TSH 3rd Generation 6.19 H (0.46-4.68) mIU/mL Laboratory Results - last 24 hr 10/21/17 10/21/17 10/22/17 01:00 06:00 05:30 Free T4 0.99 Thyroxine (T4) 7.5 Total T3 1.44 TSH 3rd Generation 6.19 H Critical Care Progress Note - Nutrition Nutrition: Nutrition Category Date Time Status Heart Healthy Diet [DIET] Diets 10/21/17 Breakfast Active Attending/Attestation - Attestation I have personally seen and examined this patient.: Yes I have fully participated in the care of the patient.: Yes I have reviewed all pertinent clinical information: Yes Notes (Text): 10/22/17 09:58 82 yo female with STEMI, s/p PCI. Finished integrillin drip. Continue with DAP, bb, statins, ACEI. ok to downgrade to tele ccm time 40 min
--- NOTE | 2017-10-21 21:26 | HP ---
Copied To: Ellen Cota MD Attending MD: Ellen Cota MD DATE OF EXAM: HISTORY OF PRESENT ILLNESS: The patient is 82 years old known to me from previous admission. According to daughter, she was complaining of back pain, going on intermittently for almost a week and yesterday she developed some chest discomfort with radiation to the left arm that started yesterday evening and persisted. She took some Tylenol that she had at home with no significant relief, so she mentioned to daughter who brought her to emergency room. EKG showed ST elevation. So code heart was called and the patient was taken to laboratory veterinarian or emergent cardiac cath. She was found to have occlusion in mid LAD, so had drug eluted stent placed and admitted to ICU. Denies any fever or chills. No history of nausea or vomiting. No diarrhea. PAST MEDICAL HISTORY: Significant for hypertension. ALLERGIES: SHE IS NOT ALLERGIC TO ANY MEDICATIONS. MEDICATIONS: At home, she is on amlodipine 10 mg daily, metoprolol 100 mg daily and vitamin D. REVIEW OF SYSTEMS: Denies smoking, drinking or alcohol use. PHYSICAL EXAMINATION: GENERAL: She is awake, alert and oriented and communicative. VITAL SIGNS: She is afebrile. Pulse 55, respirations 18, blood pressure 138/58. LUNGS: Bilateral fair air flow. No rhonchi or crackles. HEART: S1, S2 audible. ABDOMEN: Soft, nontender. No rebound, no guarding. NEUROLOGICAL: The patient is awake, alert, oriented and communicative. LABORATORY DATA: WBC is 5.1, hemoglobin 10.9, hematocrit 33.5, platelets 255. Chemistry, sodium 141, potassium 3.7, chloride 109, CO2 of 23, BUN 20, creatinine 1, blood sugar of 120. Her first troponin was 0.81 and . Total cholesterol 220. TSH 11.50. Urine culture positive for Citrobacter freundii, sensitive to Cipro. ASSESSMENT AND PLAN: 1. Acute myocardial infarction status post code heart and cardiac catheterization with LAD angioplasty. 60% proximal circumflex artery occlusion. 2. Hypertension. 3. Hyperlipidemia. PLAN: So plan is the patient is currently on aspirin 325 daily, she is on Integrilin. She has been started on Lipitor, amlodipine 10 mg daily. Continue on Plavix and metoprolol, out of bed to chair in a.m. We will follow up the patient in a.m. Ellen Cota MD [facility] # [id number]
--- NOTE | 2017-10-22 01:06 | CON ---
Copied To: Clair Gordon MD Attending MD: Clair Gordon MD DATE: 10/21/2017 ENDOCRINOLOGY CONSULT LOCATION: In ICU 128, room 1. HISTORY OF PRESENT ILLNESS: This is an 82-year-old female with longstanding history of hypertension and dyslipidemia who was admitted here with persistent left arm pain and associated lower back pain and was evaluated to have an acute myocardial infarction and underwent an emergent catheterization with placement of a drug eluting stent in the mid LAD artery as noted. She is being followed closely now in the ICU for closer hemodynamic monitoring and management. PAST MEDICAL HISTORY: As mentioned above, history of hypertension, on a combination of antihypertensive medications. FAMILY HISTORY: Positive for hypertension and heart disease. SOCIAL HISTORY: The patient has supportive family. No known substance use. She is only Belarusian speaking and the entire history was obtained from the client support consultant's notes and management. REVIEW OF SYSTEMS: As mentioned above, she was complaining with her family to have episodic bouts of dizziness and lightheadedness with generalized body weakness and suboptimal energy level. She denies any overt precordial chest pain, but admits to persistent left upper arm pain and associated lower back pain as mentioned. Her oral intake has been variable with nausea and dyspepsia and habitual constipation. PHYSICAL EXAMINATION: GENERAL: This is an average-built female in no apparent distress. VITAL SIGNS: Blood pressure of 140/80; pulse of 70 beats per minute, regular; temperature 98; respirations 20. Height is 5 feet 4 inches, weight is 171 pounds. HEENT: Head: Normocephalic. Eyes: Anicteric with pink conjunctivae. Funduscopy is not possible at this time. Ears, Nose and Throat otherwise normal. NECK: Supple. Thyroid gland is firm and nontender with no overt thyroid bruits or nodules noted. CARDIOPULMONARY: Some adynamic precordium. S1, S2 is slow and regular. LUNGS: Clear to auscultation. ABDOMEN: Flat, soft with positive bowel sounds. EXTREMITIES: No peripheral edema. Pulses are +2 bilaterally. LABORATORY DATA: The thyroid studies showed a free T4 of 0.99 with a TSH of 11.5 and a total T3 of 1.44. Her troponin level is 56.8. Chemistries: BUN of 20, sodium 141, potassium 3.7, chloride 109, CO2 23, glucose 120 and creatinine 1. ASSESSMENT: This is an 82-year-old female with longstanding hypertension, presenting here with atypical left arm pain and lower back pain with abnormal EKG and troponin levels and underwent cardiac catheterization and was evaluated to have an acute ST elevation myocardial infarction with occlusion of the mid-LAD and underwent a drug eluting stent placement as noted thereof. She also has early hypothyroidism, most likely related to underlying autoimmune thyroiditis with her advanced age as noted with no overt thyromegaly, nor palpable thyroid nodules at this time. She remains clinically euthyroid as noted. PLAN OF MANAGEMENT: We will start her on a very low dose of levothyroxine given as 25 mcg daily to start tomorrow morning as ordered. We will obtain a comprehensive thyroid hormonal profile with a total, free T4 and TSH and will include thyroid peroxidase antibody and a thyroglobulin antibody to confirm and/or indicate the presence of underlying thyroid autoimmunity. With the underlying cardiovascular condition, we will be very prudent and carefully titrating her dose regimen to obviate any further cardiac decompensation. We will obtain serial thyroid studies and also serial chemistries and supplement accordingly as needed. Clair Gordon MD
[2017-10-22] MEDS: Levothyroxine 25 MCG TAB PO SCH (05:39)
[2017-10-22 06:54] LABS: T4 7.5 ug/dL (5.5-11.0)
[2017-10-22] MEDS: Metoprolol Succinate 100 mg XL Tab PO SCH (09:55)
--- NOTE | 2017-10-22 09:55 | CP.PCM.CON ---
History of Present Illness - History of Present Illness History of Present Illness: Endocrinology Consult Note: 82 F with PMHx of HTN presents to ED with complaints of ongoing L low back pain x 2 weeks. Patient had been taking Tyenol for the pain but states but had found no relief. In the ED EKG was performed and showed ST elevations in the anterior leads and elevated troponin of 0.81. Patient was taken for emergency PTCA with HERLINDA stent placed in the LAD. Patient beeing monitored in the ICU. Endocrinology team was consulted for elevated TSH of 11.50 --> 6.19. Patient denies any complaints at this time. Denies any headaches, dizziness, sob, chest pain, abd pain, n/v/d. 12 Point ROS performed and neg other than stated above. Pmhx: HTN Surghx: Denies ALL: NKDA Med: refer to [facility] SH: Lives with family, denies smoking, drinking, or drugs Review of Systems - Review of Systems All systems: reviewed and no additional remarkable complaints except Past Patient History - Infectious Disease Hx of Infectious Diseases: None - Past Social History Smoking Status: Never Smoked - CARDIAC Hx Cardiac Disorders: Yes Hx Hypertension: Yes - PULMONARY Hx Respiratory Disorders: No - NEUROLOGICAL Hx Neurological Disorder: No - HEENT Hx HEENT Problems: Yes (glasses) Hx Cataracts: Yes (r eys sx) - RENAL Hx Chronic Kidney Disease: No - ENDOCRINE/METABOLIC Hx Endocrine Disorders: Yes Hx Hypothyroidism: Yes - HEMATOLOGICAL/ONCOLOGICAL Hx Blood Disorders: No - INTEGUMENTARY Hx Dermatological Problems: No - MUSCULOSKELETAL/RHEUMATOLOGICAL Hx Musculoskeletal Disorders: No Hx Falls: No - GASTROINTESTINAL Hx Gastrointestinal Disorders: Yes (obese) - GENITOURINARY/GYNECOLOGICAL Hx Genitourinary Disorders: No - PSYCHIATRIC Hx Psychophysiologic Disorder: No - SURGICAL HISTORY Hx Surgeries: No Meds Allergies/Adverse Reactions: Allergies Allergy/AdvReac Type Severity Reaction Status Date / Time No Known Allergies Allergy Verified 10/20/17 22:51 - Medications Medications: Current Medications Amlodipine Besylate (Norvasc) 10 mg PO DAILY [facility] Last Admin: 10/21/17 09:56 Dose: 10 mg Aspirin (Aspirin) 325 mg PO DAILY [facility] Last Admin: 10/21/17 09:56 Dose: 325 mg Atorvastatin Calcium (Lipitor) 40 mg PO DIN [facility] Last Admin: 10/21/17 17:11 Dose: 40 mg Clopidogrel Bisulfate (Plavix) 75 mg PO DAILY [facility] Last Admin: 10/21/17 09:57 Dose: 75 mg Famotidine (Pepcid) 10 mg PO 1000,2200 [facility] Last Admin: 10/21/17 22:38 Dose: 10 mg Heparin Sodium (Porcine) (Heparin) 5,000 units SC Q12 [facility] PRN Reason: Protocol Last Admin: 10/21/17 22:38 Dose: 5,000 units Levothyroxine Sodium (Synthroid) 25 mcg PO 0630 [facility] Last Admin: 10/22/17 05:39 Dose: 25 mcg Metoprolol Succinate (Toprol Xl) 100 mg PO DAILY [facility] Last Admin: 10/21/17 09:51 Dose: 100 mg Physical Exam - Constitutional Appears: No Acute Distress - Head Exam Head Exam: ATRAUMATIC, NORMOCEPHALIC - Eye Exam Eye Exam: EOMI, PERRL - ENT Exam ENT Exam: Mucous Membranes Moist - Respiratory Exam Respiratory Exam: Clear to Auscultation Bilateral. absent: Wheezes - Cardiovascular Exam Cardiovascular Exam: REGULAR RHYTHM, RRR, +S1, +S2 - GI/Abdominal Exam GI & Abdominal Exam: Normal Bowel Sounds, Soft. absent: Tenderness - Extremities Exam Extremities exam: Negative for: calf tenderness, pedal edema - Neurological Exam Neurological exam: Alert, CN II-XII Intact, Oriented x3 - Psychiatric Exam Psychiatric exam: Normal Mood - Skin Skin Exam: Dry, Intact Results - Vital Signs Recent Vital Signs: Last Vital Signs Temp 98 F 10/22/17 04:00 Pulse 67 10/22/17 03:25 Resp 18 10/22/17 03:00 BP 142/61 10/21/17 22:00 Pulse Ox 96 10/21/17 22:20 - Labs Result Diagrams: 10/21/17 05:00 10/21/17 05:00 Labs: Laboratory Results - last 24 hr 10/21/17 10/21/17 10/22/17 01:00 06:00 05:30 Free T4 0.99 Thyroxine (T4) 7.5 Total T3 1.44 TSH 3rd Generation 6.19 H Assessment & Plan - Assessment and Plan (Free Text) Assessment: 82 F with PMHx of HTN presents to ED with complaints of ongoing L low back pain x 2 weeks found to have ST elevations in the anterior leads and elevated troponin of 0.81 S/p emergency PTCA with HERLINDA stent placed in the LAD. Endocrinology team was consulted for elevated TSH of 11.50 --> 6.19. - Patient started on Synthroid 25mcg daily - F/u Thyroglobulin and thyroid peroxidase ab - F/u cardiology recs - Cont to monitor TSH and serial chemistries Patient case and plan was discussed in detail with Dr Gordon. Luis Antonio Lazcano, PGY3
[2017-10-22] MEDS: POLYETHYLENE GLYCOL 3350 17 GM/Dose PACKET PO SCH (11:41)
--- NOTE | 2017-10-22 13:01 | CARD ---
APPROVED REPORT Date of service: 10/21/2017 EXAM: Two-dimensional and M-mode echocardiogram with Doppler and color Doppler. INDICATION STEMI 2D DIMENSIONS Left Atrium (2D)4.7 (1.6-4.0cm)IVSd1.0 (0.7-1.1cm) LVDd4.6 (3.9-5.9cm)LVOT Diameter1.8 (1.8-2.4cm) PWd1.2 (0.7-1.1cm) M-Mode DIMENSIONS Aortic Root2.80 (2.2-3.7cm)Aortic Cusp Exc.1.10 (1.5-2.0cm) Aortic Valve AoV Peak Lwkdpizj603.0cm/sAoV VTI49.8cmAO Peak GR.19mmHg LVOT Peak Glyjhhpw126.0cm/sLVOT VTI24.10cmAO Mean GR.10mmHg YADIEL (VMAX)1.05oy6IDU (VTI)1.23cm2 Mitral Valve MV E Sexnwbmw920.0cm/sMV A Rahttopi17.9cm/sE/A ratio1.4 TDI Lateral E' Peak V13.60cm/sMedial E' Peak V8.77cm/sE/Lateral E'8.5 E/Medial E'13.2 Pulmonary Valve PV Peak Llvhrncg48.5cm/sPV Peak Grad.2mmHg Tricuspid Valve TR Peak Llxqhdyh386jw/sRAP HFGCWKHQ41ufTrUH Peak Gr.62mmHg [id number] LEFT VENTRICLE The left ventricle is normal size. Basal septal hypertrophy is present. The systolic function is mildly to moderately impaired. Moderate anteroseptal and apical hypokineis is noted. RIGHT VENTRICLE The right ventricle is normal size. The right ventricular systolic function is normal. ATRIA The left atrium is moderately dilated. The right atrium is mildly dilated. The interatrial septum is intact with no evidence for an atrial septal defect. AORTIC VALVE The aortic valve is mildly calcified. There is mild valvular aortic stenosis. MITRAL VALVE The mitral valve leaflets are thickened. Mitral regurgitation is severe. TRICUSPID VALVE The tricuspid valve is normal in structure. There is moderate tricuspid regurgitation. PULMONIC VALVE The pulmonary valve is normal in structure. GREAT VESSELS The aortic root is normal in size. The IVC is normal in size and collapses >50% with inspiration. PERICARDIAL EFFUSION There is no pleural effusion. There is no pericardial effusion. <Conclusion> Biatrial enlargement. Normal LV size. Moderate LV systolic dysfunction with anteroseptal and apical hypokinesis. Mild . Severe MR. Moderate TR.
[2017-10-22 13:14] LABS: PH,URINE 5.5 (4.7-8.0); URINE BILIRUBIN NEGATIVE (NEGATIVE); URINE BLOOD LARGE (NEGATIVE); URINE GLUCOSE (UA) NEGATIVE (NEGATIVE); URINE LEUKOCYTE ESTERASE LARGE Leu/uL (NEGATIVE); URINE PROTEIN TRACE mg/dL (<30 mg/dL); URINE UROBILINOGEN 0.2 E.U./dL (<1 E.U./dL)
[2017-10-22 13:16] LABS: URINE APPEARANCE CLEAR (CLEAR); URINE COLOR YELLOW (YELLOW)
[2017-10-22 13:38] LABS: URINE BACTERIA FEW (NEG); URINE RBC 0 - 2 /hpf (0-2); URINE WBC 25 - 30 /hpf (0-6)
--- NOTE | 2017-10-22 14:10 | PN ---
Copied To: Milad Brewer MD Attending MD: Milad Brewer MD DATE: 10/22/2017 CARDIOLOGY FOLLOWUP SUBJECTIVE: The patient is chest pain free. OBJECTIVE: Blood pressure is 117/51, heart rate is in the 60s. NECK: Negative JVD. LUNGS: Without rales. HEART: Reveal S1, S2. EXTREMITIES: Without edema. DATA: Hemoglobin is 10.9. BUN and creatinine are unremarkable. peaked at 56. Thyroid functions reveal hypothyroidism. IMPRESSION: 1. Status post acute anterior wall myocardial infarction. 2. Diabetes mellitus. 3. Hypertension. 4. Hypothyroidism. 5. Status post emergency percutaneous transluminal coronary angioplasty and stent of an occluded left anterior descending artery. 6. Hypercholesterolemia. Given these findings, we will ambulate the patient. If stable, we will discharge the patient in the morning. Milad Brewer MD
[2017-10-22 18:06] VITALS: RESP 18
--- NOTE | 2017-10-22 18:25 | PN ---
Copied To: Clair Gordon MD Attending MD: Clair Gordon MD DATE: 10/22/2017 LOCATION: In room 262 telemetry. SUBJECTIVE: This is an 82-year-old female presenting here with left arm pain and evaluated to have an acute ST-elevation myocardial infarction and underwent a drug eluting stent placement thereof and is also being followed closely for metabolic management. She also had overt early hypothyroidism and has been started on a small dose of levothyroxine therapy, which she is tolerating fairly well at this time. Her repeat chemistry showed a BUN of 20, sodium 141, potassium 3.7, chloride 109, CO2 23, glucose 120 and creatinine 1. Her repeat thyroid study showed a T4 of 7.5 with a free T4 of 0.99 and a T3 of 1.44 and a TSH of 6.19. ASSESSMENT: This is an 82-year-old female with acute myocardial infarction undergoing a coronary stent placement and has improved clinically and hemodynamically as noted thereof. She also has early hypothyroidism most likely related to underlying autoimmune thyroiditis, fairly common in patient with her advanced age, but also with a superimposed acute sick euthyroid syndrome with intercurrent physical stressors as noted. PLAN OF MANAGEMENT: We will continue the levothyroxine given as 25 mcg once daily in the morning as ordered. We will obtain serial thyroid studies and titrate her dose regimen accordingly. Many a times, the patient is actually be weaned off the levothyroxine therapy as the thyroid functions improve accordingly. We will obtain thyroid antibodies, which will confirm and/or indicate the presence of underlying thyroid autoimmunity. We will follow. We will obtain serial chemistries and supplement accordingly as needed. We will follow. Clair Gordon MD : 10/22/2017 16:28:48
--- NOTE | 2017-10-22 19:19 | PN ---
Copied To: Ellen Cota MD Attending MD: Ellen Cota MD DATE: 10/22/2017 SUBJECTIVE: The patient is 82 years old, who is brought by her daughter on 10/20/2017. She was found to have ST-elevation CO. Code heart was called. Dr. Brewer took the patient to the cardiac cath and her LAD stented. Stayed in ICU for 2 days. Doing well. PHYSICAL EXAMINATION: GENERAL: On examination today, she is awake, alert, oriented, communicative. There is a language barrier. She speaks Japanese; however, she seems to be comfortable except having constipation. There is no other complaint today. VITAL SIGNS: She is afebrile, pulse 62, respirations 18, blood pressure 122/66. LUNGS: Bilateral fair airflow. No rhonchi or crackle. HEART: S1 and S2 audible. ABDOMEN: Soft, obese, nontender. No rebound. No guarding. NEUROLOGICAL: She is awake, alert, able to communicate. LABORATORY EXAM: Hemoglobin is 5.5. Urine shows large leukocyte, large blood. ASSESSMENT: 1. Status post left anterior descending angioplasty. 2. Hyperlipidemia. 3. Morbid obesity. 4. Hypertension. 5. Hyperlipidemia. 6. Urinary tract infection. PLAN: The patient is started on Cipro 500 twice a day. Continue her on statin. Continue her on aspirin. She is on amlodipine. We will continue that. Encourage ambulation. If she remains stable, possible discharge in the a.m. Ellen Cota MD
[2017-10-23] MEDS: Levothyroxine 25 MCG TAB PO SCH (06:06)
[2017-10-23 06:39] VITALS: O2SAT 94
[2017-10-23 07:15] LABS: FREE T4 1.11 ng/dL (0.78-2.19); T4 7.7 ug/dL (5.5-11.0)
--- NOTE | 2017-10-23 11:01 | CP.PCM.PN ---
Subjective - Date & Time of Evaluation Date of Evaluation: 10/23/17 Time of Evaluation: 07:45 - Subjective Subjective: Endocrinology progress note for Dr. Gordon: Patient was seen and examined at bedside. Patient resting in bed comfortably. States that he is feeling better. No complaints. 12 point ROS performed and negative other than stated above. Objective - Vital Signs/Intake and Output Vital Signs (last 24 hours): Temp Pulse Resp BP Pulse Ox 99 F 70 18 105/35 L 94 L 10/23/17 06:00 10/23/17 06:00 10/23/17 06:00 10/23/17 06:00 10/23/17 06:00 Intake and Output: 10/23/17 10/23/17 06:59 18:59 Intake Total 120 Output Total 2 Balance 118 - Medications Medications: Current Medications Amlodipine Besylate (Norvasc) 10 mg PO DAILY [facility] Last Admin: 10/22/17 09:55 Dose: 10 mg Aspirin (Ecotrin) 81 mg PO DAILY [facility] Atorvastatin Calcium (Lipitor) 40 mg PO DIN [facility] Last Admin: 10/22/17 17:12 Dose: 40 mg Ciprofloxacin (Cipro) 500 mg PO Q12 [facility] PRN Reason: Protocol Stop: 10/27/17 13:31 Last Admin: 10/22/17 22:13 Dose: 500 mg Clopidogrel Bisulfate (Plavix) 75 mg PO DAILY [facility] Last Admin: 10/22/17 09:55 Dose: 75 mg Levothyroxine Sodium (Synthroid) 25 mcg PO 0630 [facility] Last Admin: 10/23/17 06:06 Dose: 25 mcg Polyethylene Glycol (Miralax) 17 gm PO DAILY [facility] Last Admin: 10/22/17 11:41 Dose: 17 gm - Labs Labs: 10/21/17 05:00 10/21/17 05:00 APTT 27.0 Seconds (25.1-36.5) 10/22/17 10:00 - Constitutional Appears: No Acute Distress - Head Exam Head Exam: ATRAUMATIC, NORMOCEPHALIC - Eye Exam Eye Exam: EOMI - ENT Exam ENT Exam: Mucous Membranes Moist - Respiratory Exam Respiratory Exam: Clear to Ausculation Bilateral. absent: Wheezes - Cardiovascular Exam Cardiovascular Exam: REGULAR RHYTHM, +S1, +S2 - GI/Abdominal Exam GI & Abdominal Exam: Soft, Normal Bowel Sounds. absent: Tenderness - Extremities Exam Extremities Exam: absent: Calf Tenderness, Pedal Edema - Neurological Exam Neurological Exam: Alert, Awake, Oriented x3 - Psychiatric Exam Psychiatric exam: Normal Mood - Skin Skin Exam: Dry, Warm Assessment and Plan - Assessment and Plan (Free Text) Assessment: 82 F with PMHx of HTN presents to ED with complaints of ongoing L low back pain x 2 weeks found to have ST elevations in the anterior leads and elevated troponin of 0.81 S/p emergency PTCA with HERLINDA stent placed in the LAD. Endocrinology team was consulted for elevated TSH of 11.50 --> 6.19. - Cont Synthroid 25mcg daily - F/u ordered Thyroglobulin and thyroid peroxidase ab - F/u cardiology recs - Cont to monitor TSH 6.18 today, and serial chemistries Patient case and plan was discussed in detail with Dr Gordon. Luis Antonio Lazcano, PGY3
--- NOTE | 2017-10-23 11:44 | PN ---
Copied To: Milad Brewer MD Attending MD: Milad Brewer MD DATE: 10/23/2017 SUBJECTIVE: The patient is ambulating without symptoms. PHYSICAL EXAMINATION: VITAL SIGNS: Blood pressure 105/70, heart rate is in the 70s. NECK: Negative JVD. LUNGS: Without rales. HEART: S1, S2. EXTREMITIES: Without edema. LABORATORY DATA: Laboratories were reviewed. The hemoglobin is 10.9. Chemistries was not drawn today. IMPRESSION: 1. Stable post anterior wall myocardial infarction. 2. Status post emergency percutaneous transluminal coronary angioplasty and stent. 3. Diabetes mellitus. 4. Hypercholesterolemia. 5. Hypothyroidism. Given these findings, the patient is stable for discharge. Followup and instructions have been given to the patient in detail. Milad Brewer MD
[2017-10-23] MEDS: POLYETHYLENE GLYCOL 3350 17 GM/Dose PACKET PO SCH ×2 (11:49→11:54)
[2017-10-23 11:53] VITALS: BP 135/50
[2017-10-23 13:49] VITALS: PULSE 74; TEMP 98.8
--- NOTE | 2017-10-23 15:23 | DS ---
Copied To: Ellen Cota MD Attending MD: Ellen Cota MD HISTORY OF PRESENT ILLNESS: The patient is 82 years old, who came to emergency room on 10/20/2017 with back pain, intermittently going on for 1 week. On evening of 10/20/2017, she developed chest pain radiating to the left arm and that persisted. The daughter brought her to emergency room for evaluation. She was found to have ST-elevation AL. She was taken to woven label designer. Code heart was called. Dr. Brewer was consulted and the patient ended up having an LAD angioplasty. Remained in the ICU for 2 days, doing well. PHYSICAL EXAMINATION: GENERAL: On examination today, she is awake, alert, oriented, communicative. VITAL SIGNS: She is afebrile, pulse 74, respirations 18, blood pressure 135/50. LUNGS: Bilateral fair airflow. No rhonchi or crackle. HEART: S1 and S2 audible. ABDOMEN: Soft. Nontender. No rebound. No guarding. NEUROLOGICAL: The patient is awake, alert, oriented, communicative. EXTREMITIES: Able to move all extremities. Bilateral legs, no edema. ASSESSMENT: 1. Acute myocardial infarction, status post left anterior descending stenting. 2. Hypertension. 3. Hyperlipidemia. 4. Urinary tract infection. 5. Hypothyroidism. PLAN: The patient is being discharged today on Cipro 500 twice a day for 7 days, aspirin 81 daily, atorvastatin 40 mg daily and Plavix 75 mg daily, levothyroxine 25 mcg daily. She will follow up with her PMD in a week or two. Ellen Cota MD
--- NOTE | 2017-10-23 20:39 | PN ---
Copied To: Clair Gordon MD Attending MD: Clair Gordon MD DATE: 10/23/2017 ENDOCRINOLOGY FOLLOWUP LOCATION: In room 262. SUBJECTIVE: This is an 82-year-old female with recent acute myocardial infarction and underwent a drug-eluting stent placement in the LAD and is now being followed closely for hemodynamic monitoring and cardiac management. She is also being followed closely from the metabolic viewpoint for recent hypothyroidism and is tolerating the levothyroxine replacement therapy as given. Her latest thyroid study showed a T4 of 7.7 with a free T4 of 1.1 and TSH of 6.18. Her latest chemistry showed a BUN of 20, sodium 141, potassium 3.7, chloride 109, CO2 of 23, glucose 120, and creatinine 1. Her hemoglobin A1c is 5.5%. ASSESSMENT: So at this time, we will continue the levothyroxine given as 25 mcg once daily as ordered, and obtain serial chemistries and supplement accordingly needed. We will also obtain serial thyroid studies and titrate her dose regimen accordingly. We will follow. Clair Gordon MD
== END 2017-10-23 16:20 | disposition home or self-care (01) | DRG 247 ==
LOC: ED 22:37 → ERH 10-21 00:39 → ICU 10-21 01:59 → 2RNO 10-22 15:04
PROVIDERS: ADMIT Internal Medicine; ATTEND Internal Medicine
PROC: 027034Z Dilation of Coronary Artery, One Artery with Drug-eluting Intraluminal Device, Percutaneous Approach (ICD-10-PCS; principal; 2017-10-21)
PROC: 4A023N7 Measurement of Cardiac Sampling and Pressure, Left Heart, Percutaneous Approach (ICD-10-PCS; 2017-10-21)
PROC: B2111ZZ Fluoroscopy of Multiple Coronary Arteries using Low Osmolar Contrast (ICD-10-PCS; 2017-10-21)
PROC: B2151ZZ Fluoroscopy of Left Heart using Low Osmolar Contrast (ICD-10-PCS; 2017-10-21)
DX: I21.09 ST elevation (STEMI) myocardial infarction involving other coronary artery of anterior wall (principal); N39.0 Urinary tract infection, site not specified; I10 Essential (primary) hypertension; E78.5 Hyperlipidemia, unspecified; E11.9 Type 2 diabetes mellitus without complications; E78.00 Pure hypercholesterolemia, unspecified; E06.3 Autoimmune thyroiditis; E07.81 Sick-euthyroid syndrome; E66.01 Morbid (severe) obesity due to excess calories; Z68.27 Body mass index [BMI] 27.0-27.9, adult

== ENCOUNTER 2017-11-13 11:13 | Observation (INO) | payer MEDICARE, MEDICAID ==
[2017-11-13 11:23] VITALS: BMI 29.9
--- NOTE | 2017-11-13 11:41 | ED PDOC ---
Arrival/HPI - General Chief Complaint: Weakness/Neurological Deficit Time Seen by Provider: 11/13/17 11:19 Historian: Patient, Family - History of Present Illness Narrative History of Present Illness (Text): 11/13/17 11:37 82 year old female, whose past medical history includes hypertension and STEMI, is brought into the emergency department by daughter who translated with the patient's permission, for evaluation status post syncopal episode. The patient states she did not eat this morning, did not feel well. Patient states she then went to take her shower, when she felt faint, and called her daughter. Patient states she did have a syncopal episode after that for about one minute. The patient denies fevers, chills, headache, dizziness, chest pain, shortness of breath, cough, abdominal pain, nausea, vomiting, diarrhea, neck pain, urinary /bowel changes, or any other complaint. PMD: Dr. Jeter Time/Duration: 1-3 hours Symptom Onset: Gradual Activities at Onset: Light Context: Home Past Medical History - Provider Review Nursing Documentation Reviewed: Yes - Infectious Disease Hx of Infectious Diseases: None - Cardiac Hx KS: Yes Hx Hypertension: Yes - Pulmonary Hx Respiratory Disorders: No - Neurological Hx Neurological Disorder: No - HEENT Hx HEENT Disorder: Yes (glasses) Hx Cataracts: Yes (r eys sx) - Renal Hx Renal Disorder: No - Endocrine/Metabolic Hx Hypothyroidism: Yes - Hematological/Oncological Hx Blood Disorders: No - Integumentary Hx Dermatological Disorder: No - Musculoskeletal/Rheumatological Hx Musculoskeletal Disorders: No Hx Falls: No - Gastrointestinal Hx Gastrointestinal Disorders: Yes (obese) - Genitourinary/Gynecological Hx Genitourinary Disorders: No - Psychiatric Hx Psychophysiologic Disorder: No Hx Substance Use: No Family/Social History - Physician Review Nursing Documentation Reviewed: Yes Family/Social History: No Known Family HX Smoking Status: Never Smoked Hx Alcohol Use: No Hx Substance Use: No Allergies/Home Meds Allergies/Adverse Reactions: Allergies No Known Allergies Allergy (Verified 11/13/17 11:23) Home Medications: Home Meds Medication Instructions Recorded Confirmed Ergocalciferol (Vitamin D2) 1.25 mg PO .WEEKLY 10/31/16 11/13/17 [Vitamin D2] Review of Systems - Physician Review All systems were reviewed & negative as marked: Yes - Review of Systems Constitutional: Other (feeling faint this morning). absent: Fevers, Night Sweats Eyes: Normal ENT: Normal Respiratory: Normal. absent: SOB, Cough Cardiovascular: Normal. absent: Chest Pain Gastrointestinal: Normal. absent: Abdominal Pain, Diarrhea, Nausea, Vomiting Genitourinary Female: Normal. absent: Urine Output Changes Musculoskeletal: Normal. absent: Back Pain, Neck Pain Skin: Normal Neurological: Normal. absent: Headache, Dizziness Endocrine: Normal Hemo/Lymphatic: Normal Psychiatric: Normal Physical Exam Vital Signs Reviewed: Yes Vital Signs Temp Pulse Resp BP Pulse Ox 11/13/17 15:05 98.0 F 83 18 97 11/13/17 14:58 98.0 F 83 18 97 11/13/17 11:31 98 F 87 18 142/69 99 Temperature: Afebrile Blood Pressure: Normal Pulse: Regular Respiratory Rate: Normal Appearance: Positive for: Well-Appearing, Non-Toxic, Comfortable Pain Distress: None Mental Status: Positive for: Alert and Oriented X 3 - Systems Exam Head: Present: Atraumatic, Normocephalic Pupils: Present: PERRL Extroacular Muscles: Present: EOMI Conjunctiva: Present: Normal Mouth: Present: Moist Mucous Membranes Neck: Present: Normal Range of Motion Respiratory/Chest: Present: Clear to Auscultation, Good Air Exchange. No: Respiratory Distress, Accessory Muscle Use Cardiovascular: Present: Regular Rate and Rhythm, Murmurs (systolic ejection murmur), Normal S1, S2 Abdomen: No: Tenderness, Distention, Peritoneal Signs Back: Present: Normal Inspection Upper Extremity: Present: Normal Inspection. No: Cyanosis, Edema Lower Extremity: Present: Normal Inspection. No: Edema Neurological: Present: GCS=15, CN II-XII Intact, Speech Normal Skin: Present: Warm, Dry, Normal Color. No: Rashes Psychiatric: Present: Alert, Oriented x 3, Normal Insight, Normal Concentration Medical Decision Making ED Course and Treatment: 11/13/17 11:42 Impression: 82 year old female presents to the emergency department for evaluation, status post syncopal episode. Plan: -- Labs -- EKG -- Chest X-ray -- Urinalysis -- Reassess and disposition Prior Visits: Notes and results from previous visits were reviewed. Progress Notes: 11/13/17 11:46 EKG reviewed, shows: Normal sinus rhythm @ 90bpm Nonspecific ST and T wave changes Q waves inferiorly 11/13/17 12:50 CT HEAD reviewed by radiologist, shows: No acute findings Chest X-ray reviewed by radiologist, shows: No active disease. 11/13/17 13:[address] Coat, she accepts case. 11/13/17 15:32 pt seen with resident s/p syncopal episode. h/ o fstemi 3 weeks ago. no cp. requests dr jaime and dr blunt consult - Lab Interpretations Lab Results: 11/13/17 11:46 11/13/17 11:46 Lab Results 11/13/17 12:34: Urine Color Yellow, Urine Appearance Clear, Urine pH 5.5, Ur Specific [place] 1.020, Urine Protein 30 H, Urine Glucose (UA) Negative, Urine Ketones Negative, Urine Blood Trace-intact H, Urine Nitrate Negative, Urine Bilirubin Negative, Urine Urobilinogen 0.2, Ur Leukocyte Esterase Trace H, Urine RBC 2 - 5, Urine WBC 5 - 10, Ur Epithelial Cells 4 - 5, Amorphous Sediment Few, Urine Bacteria Many, Coarse Granular Casts Trace H, Urine Other Uyeast 11/13/17 11:46: Sodium 142, Potassium 4.1, Chloride 105, Carbon Dioxide 24, Anion Gap 18, BUN 28 H, Creatinine 1.2, Est GFR ( Amer) 52, Est GFR (Non- Af Amer) 43, Random Glucose 124 H, Calcium 9.5, Magnesium 2.0, Total Bilirubin 0.6, AST 26, ALT 22, Alkaline Phosphatase 78, Lactate Dehydrogenase 402, Total Creatine Kinase 48, Troponin I < 0.01 D, Total Protein 8.2, Albumin 4.5, Globulin 3.7, Albumin/Globulin Ratio 1.2 11/13/17 11:46: PT 11.0, INR 0.96, APTT 27.6 11/13/17 11:46: WBC 4.3 L, RBC 4.86, Hgb 12.0, Hct 37.1, MCV 76.3 L, MCH 24.7 L , MCHC 32.3, RDW 15.6 H, Plt Count 238, MPV 9.1, Gran % 70.8 H, Lymph % (Auto) 18.9 L, Forrest % (Auto) 7.5 H, Eos % (Auto) 2.6, Baso % (Auto) 0.2, Gran # 3.03, Lymph # (Auto) 0.8 L, [place] # (Auto) 0.3, Eos # (Auto) 0.1, Baso # (Auto) 0.01 - RAD Interpretation Radiology Orders: 11/13/17 11:34 CHEST PORTABLE [RAD] Stat 11/13/17 11:35 HEAD W/O CONTRAST [CT] Stat - Scribe Statement The provider has reviewed the documentation as recorded by the Scribkelsey Saenz Disposition/Present on Arrival - Present on Arrival Any Indicators Present on Arrival: No History of DVT/PE: No History of Uncontrolled Diabetes: No Urinary Catheter: No History of Decub. Ulcer: No History Surgical Site Infection Following: None - Disposition Have Diagnosis and Disposition been Completed?: Yes Diagnosis: Syncope Disposition: HOSPITALIZED Disposition Time: 03:00 Condition: STABLE
--- NOTE | 2017-11-13 12:01 | RAD ---
Date of service: 11/13/2017 HISTORY: syncope COMPARISON: 10/21/2017 FINDINGS: LUNGS: No active pulmonary disease. PLEURA: No significant pleural effusion identified, no pneumothorax apparent. CARDIOVASCULAR: Normal. OSSEOUS STRUCTURES: No significant abnormalities. VISUALIZED UPPER ABDOMEN: Normal. OTHER FINDINGS: None. IMPRESSION: No active disease.
[2017-11-13 12:14] LABS: BASO # 0.01 K/mm3 (0.0-2.0); BASO % 0.2 % (0.0-3.0); EOS # 0.1 (0.0-0.7); EOS % 2.6 % (1.5-5.0); GRAN # 3.03 (1.4-6.5); GRAN % 70.8 % (50.0-68.0); LYMPH # 0.8 (1.2-3.4); LYMPH % 18.9 % (22.0-35.0); MEAN CELL VOLUME 76.3 fl (80.0-105.0); MEAN CORPUSCULAR HEMOGLOBIN 24.7 pg (25.0-35.0); MEAN CORPUSCULAR HGB CONC 32.3 g/dl (31.0-37.0); MEAN PLATELET VOLUME 9.1 fl (7.0-11.0); MONO # 0.3 (0.1-0.6); MONO % 7.5 % (1.0-6.0); RBC 4.86 10^6/uL (3.5-6.1); RED CELL DISTRIBUTION WIDTH 15.6 % (11.5-14.5); WHITE BLOOD COUNT 4.3 10^3/ul (4.5-11.0)
--- NOTE | 2017-11-13 12:14 | CT ---
Date of service: 11/13/2017 PROCEDURE: CT HEAD WITHOUT CONTRAST. HISTORY: syncope COMPARISON: None available. TECHNIQUE: Axial computed tomography images were obtained through the head/brain without intravenous contrast. Radiation dose: Total exam DLP = 747 mGy-cm. This CT exam was performed using one or more of the following dose reduction techniques: Automated exposure control, adjustment of the mA and/or kV according to patient size, and/or use of iterative reconstruction technique. FINDINGS: HEMORRHAGE: No intracranial hemorrhage. BRAIN: No mass effect or edema. No atrophy or chronic microvascular ischemic changes. VENTRICLES: Unremarkable. No hydrocephalus. CALVARIUM: Unremarkable. PARANASAL SINUSES: Unremarkable as visualized. No significant inflammatory changes. MASTOID AIR CELLS: Unremarkable as visualized. No inflammatory changes. OTHER FINDINGS: None. IMPRESSION: No acute findings
[2017-11-13 12:23] LABS: INR 0.96; PARTIAL THROMBOPLASTIN TIME 27.6 Seconds (25.1-36.5)
[2017-11-13 12:24] LABS: ALB/GLOB RATIO 1.2 (1.1-1.8); ALBUMIN 4.5 g/dL (3.0-4.8); ALT/SGPT 22 U/L (7-56); AST/SGOT 26 U/L (14-36); BLOOD UREA NITROGEN 28 mg/dL (7-21); CALCIUM 9.5 mg/dL (8.4-10.5); GFR NON-AFRICAN AMERICAN 43
[2017-11-13 12:35] LABS: TROPONIN I < 0.01 ng/mL
[2017-11-13 13:11] LABS: PH,URINE 5.5 (4.7-8.0); URINE APPEARANCE CLEAR (CLEAR); URINE BILIRUBIN NEGATIVE (NEGATIVE); URINE BLOOD TRACE-INTACT (NEGATIVE); URINE COLOR YELLOW (YELLOW); URINE GLUCOSE (UA) NEGATIVE (NEGATIVE); URINE LEUKOCYTE ESTERASE TRACE Leu/uL (NEGATIVE); URINE PROTEIN 30 mg/dL (<30 mg/dL); URINE UROBILINOGEN 0.2 E.U./dL (<1 E.U./dL)
[2017-11-13 13:15] LABS: URINE AMORPHOUS SEDIMENT FEW; URINE BACTERIA MANY (NEG); URINE COARSE GRANULAR CAST TRACE /hpf (0-2)
[2017-11-13] MEDS ORDERED: Pneumococcal 23-Valent Vaccine IM ONE (16:37)
[2017-11-13] MEDS: POLYETHYLENE GLYCOL 3350 17 GM/Dose PACKET PO SCH (16:52)
--- NOTE | 2017-11-13 17:10 | CON ---
Copied To: Oscar Bonner MD Attending MD: Oscar Bonner MD DATE: 11/13/2017 NEUROLOGY CONSULTATION CHIEF COMPLAINT: Syncope. HISTORY OF PRESENT ILLNESS: This is an 82-year-old woman with history of hypertension, STEMI, dyslipidemia who presents to the hospital with syncopal event. This morning, she did not eat any food and went for a hot shower and felt faint and called her daughter, had a syncopal event for about a minute, no seizure like activity, no history of seizures. No history of change in sense of vision, taste or smell or any headaches at this time and walked around the corridor of the floor with no issues. She is following commands and moving all extremities, not any pain or whatsoever. She is being undergoing a carotid Doppler. PAST MEDICAL HISTORY: As above. REVIEW OF SYSTEMS: Fourteen-point review of systems is negative except as per the HPI. ALLERGIES: NO KNOWN DRUG ALLERGIES. MEDICATIONS: Reviewed by nurse per reconciliation sheet. FAMILY HISTORY: Noncontributory. LABORATORY DATA: Sodium is 142, potassium , chloride of 105, carbon dioxide 24, BUN of 28, creatinine of 1.2, random glucose of 124. PHYSICAL EXAMINATION: VITAL SIGNS: Temperature 98, pulse rate of 83, blood pressure of , oxygen saturation 97% by room air. GENERAL: The patient is sitting up in bed, in no acute distress. HEENT: Head is atraumatic, normocephalic. PERRLA. Extraocular muscles intact. NECK: Supple. No JVD. No adenopathy noted. LUNGS: Clear to auscultation. No adventitious sounds. HEART: S1 and S2. Normal rate and rhythm. No murmurs, rubs or gallops. ABDOMEN: Soft, nontender and nondistended. Bowel sounds are present. EXTREMITIES: No clubbing. No cyanosis. Peripheral pulses 2+ felt bilaterally. NEUROLOGIC: The patient is alert and oriented to person, place, month and year. Speech is fluent without any errors. Cranial nerves II through XII intact. Motor exam: Moves all extremities equally. Toes are downgoing bilaterally. Sensory exam: Light touch, pinprick, proprioception and vibration are intact. DTRs are 2+ throughout, 1 at both ankles. Coordination: [id number] intact. No dysmetria noted. Gait is normal. Romberg negative. ASSESSMENT AND PLAN: This is an 82-year-old woman with history of hypertension, history of dyslipidemia and ST elevation myocardial infarction, on aspirin 81 and Lipitor and Plavix for stroke prevention; also history of hypothyroidism, on levothyroxine, who had a syncopal event while in the shower and did not eat in the morning. Prior to shower, had a syncopal event without any seizure like activity. Her syncope is most likely vasovagal in nature rather than a seizure. At this time, we recommend; 1. Carotid Doppler to assess for any coronary artery disease. 2. Continue with aspirin 81 and Plavix 75 and Lipitor 40 mg for stroke prevention. 3. If she is clinically stable, cardiac monitoring and to follow up as an outpatient. She is clinically stable from my standpoint. Thank you for this consultation. Oscar Bonner MD
--- NOTE | 2017-11-13 17:38 | CARD ---
APPROVED REPORT Date of service: 11/13/2017 EKG Measurement Heart [id number] <Conclusion> Normal sinus rhythm with sinus arrhythmia Inferior infarct, age undetermined Anterior infarct, age undetermined Abnormal ECG
--- NOTE | 2017-11-13 18:27 | HP ---
Copied To: Ellen Cota MD Attending MD: Ellen Cota MD HISTORY OF PRESENT ILLNESS: The patient is 82 years old, known to me from previous admission. She was recently admitted after she had SC. She had code heart called and had catheterization done on 10/21/2017 and had left anterior descending angioplasty done. According to daughter, the patient does ambulate at home. The patient states this morning when she took shower, she felt weak and dizzy, called her daughter, who assisted her. Eclectic extremely weak as if she is going to pass out, but never lost consciousness. No history of seizure-like activity. No blurry vision. She walked to the bed, but the daughter brought her to emergency room for further evaluation. No history of fever or chills. No nausea, vomiting or diarrhea recently. No history of rectal bleeding. No hemoptysis. PAST MEDICAL HISTORY: She has past medical history significant for, 1. Hypertension. 2. Recent code heart and had left anterior descending angioplasty. 3. Hyperlipidemia. 4. Morbid obesity. ALLERGIES: SHE IS NOT ALLERGIC TO ANY MEDICATION. MEDICATIONS AT HOME: She is on aspirin 81 daily, Plavix 75 daily. She is on Norvasc 10 mg daily, levothyroxine 25 mcg daily, Lipitor 40 mg daily, vitamin D, amlodipine 10 mg daily. SOCIAL HISTORY: Denies smoking, drinking or alcohol use. REVIEW OF SYSTEMS: She feels much better now. PHYSICAL EXAMINATION: GENERAL: On examination, she is awake, alert, oriented, communicative. VITAL SIGNS: She is afebrile, pulse 79, respirations 18, blood pressure 125/65. LUNGS: Bilateral fair airflow. No rhonchi or crackle. HEART: S1 and S2 audible. ABDOMEN: Soft, obese, nontender. No rebound. No guarding. NEUROLOGICAL: The patient is awake, alert, oriented, communicative. LABORATORY EXAM: WBC is 4.3, hemoglobin 12, hematocrit 37, platelet 238. PT 11, INR 0.96, PTT 27.6. Chemistry: Sodium 142, potassium 4.1, chloride 105, CO2 of 24, BUN 28, creatinine 1.2, blood sugar 125. LFTs are within normal limit. Troponin is 0.01. Urinalysis shows trace leukocyte, trace granular casts, 5-10 wbc's. She has carotid Doppler done that is pending. CT scan of the head is unremarkable. ASSESSMENT: 1. Near-syncope. 2. Recent myocardial infarction with left anterior descending angioplasty. 3. Hypertension. 4. Hyperlipidemia. 5. Hypothyroidism. PLAN: We will restart all medications. We will follow up carotid Doppler. Encourage physical therapy. No evidence of stroke. No focal deficit. We will monitor 24 hours. If remains stable, possible discharge in a.m. We will follow up this patient in a.m. If stable, possible . Ellen Cota MD
[2017-11-13 20:08] LABS: TROPONIN I 0.01 ng/mL
--- NOTE | 2017-11-13 20:45 | US ---
PROCEDURE: Bilateral carotid artery duplex ultrasound HISTORY: Carotid stenosis PHYSICIAN(S): Milad Florez MD. TECHNIQUE: Duplex sonography and color-flow Doppler were used to evaluate the carotid bifurcations and limited segments of the vertebral arteries bilaterally. FINDINGS: There is mild smooth heterogeneous plaque noted at the carotid bifurcations bilaterally. The peak systolic velocity in the proximal right internal carotid artery is 81 cm/sec. This corresponds to a 20 to 39% proximal right ICA stenosis. The exam is somewhat limited by tortuous vessels. Normal systolic velocities are noted in the proximal right external carotid artery. There is antegrade flow in the right vertebral artery. The peak systolic velocity in the proximal left internal carotid artery is 79 cm/sec. This corresponds to a 20 to 39% proximal left ICA stenosis. Normal systolic velocities are noted in the proximal left external carotid artery. There is antegrade flow in the left vertebral artery. IMPRESSION: 1. Bilateral 20-39% proximal ICA stenoses. 2. Antegrade flow in both vertebral arteries.
[2017-11-14 06:08] VITALS: O2SAT 96
[2017-11-14] MEDS ORDERED: Levothyroxine 25 MCG TAB PO SCH (06:30)
[2017-11-14] MEDS: POLYETHYLENE GLYCOL 3350 17 GM/Dose PACKET PO SCH (09:26)
[2017-11-14 12:13] VITALS: BP 106/63; PULSE 76; RESP 19; TEMP 98.4
--- NOTE | 2017-11-14 13:56 | CON ---
Copied To: Milad Brewer MD Attending MD: Milad Brewer MD DATE: 11/14/2017 CARDIOLOGY CONSULTATION HISTORY OF PRESENT ILLNESS: The patient is an 82-year-old woman who did not eat all day and had a syncopal episode. No seizure activity was noted. The patient's past medical history is notable for recent acute anterior wall myocardial infarction on 10/21/2017 with successful emergency PTCA of an occluded LAD. The patient's post recovery was unremarkable. She denies chest pain, denies shortness of breath. The patient is currently feeling well without angina, without shortness of breath and able to ambulate without symptoms. Past medical history also includes hypertension and hypercholesterolemia. SOCIAL HISTORY: The patient lives at home. REVIEW OF SYSTEMS: Fourteen-point review of systems is reviewed in detail. No cardiac symptomatology was noted. PHYSICAL EXAMINATION: VITAL SIGNS: Blood pressure is 117/46, the heart rate is in the 50s. NECK: Negative JVD. LUNGS: Without rales. HEART: Reveals S1, S2. EXTREMITIES: Without edema. LABORATORY DATA: Laboratories reveal troponins that are negative. The hemoglobin is 12. EKG shows nonspecific ST-T changes, which is unchanged from her previous EKG. IMPRESSION: 1. Syncope, which is likely due to vasovagal. 2. Recent anterior wall FL. No evidence for arrhythmias. 3. Coronary artery disease. 4. Hypertension. 5. Hypercholesterolemia. 6. Dehydration. PLAN: Given these findings, there is no evidence for acute coronary syndrome. No arrhythmias noted. We will decrease her antihypertensive medication. I have talked with the patient about her need to eat and drink and not be n.p.o. for 24 hours. Milad Brewer MD
--- NOTE | 2017-11-15 00:59 | DS ---
Copied To: Ellen Cota MD Attending MD: Ellen Cota MD HISTORY OF PRESENT ILLNESS: The patient is 82-year-old, seen and examined. Doing well. Ambulating with nurse. No nausea or vomiting. No diarrhea. No dizziness. PHYSICAL EXAMINATION: VITAL SIGNS: She is afebrile, pulse 58, respirations 18, blood pressure 117/46. LUNGS: Bilateral fair airflow. No rhonchi or crackle. HEART: S1 and S2 audible. ABDOMEN: Soft, nontender. No rebound, no guarding. NEUROLOGIC: She is awake, alert, oriented, communicative. LABORATORY DATA: Her total cholesterol is 137, LDL is 52. Two sets of troponin is negative. Urinalysis is trace granular cast and leukocyte. ASSESSMENT: 1. Status post near syncope, etiology is still unclear, could be dehydration. Carotid Doppler is unremarkable. CT scan is unremarkable. 2. Hypertension. 3. Hyperlipidemia. 4. Recent myocardial infarction with left anterior descending angioplasty. PLAN: Since the patient's blood pressure is running on the low side, we will discharge the patient on 5 mg of Norvasc rather than 10 and she will continue aspirin, atorvastatin, amlodipine, Plavix 75 daily and levothyroxine 25 mcg daily. She will follow up with her . Ellen Cota MD
== END 2017-11-14 16:10 | disposition home or self-care (01) ==
LOC: ED 11:13 → ERH 13:12 → 2RSO 15:18
PROVIDERS: ADMIT Internal Medicine; ATTEND Internal Medicine
DX: E86.0 Dehydration (principal); I10 Essential (primary) hypertension; E78.5 Hyperlipidemia, unspecified; I25.2 Old myocardial infarction; R55 Syncope and collapse; E03.9 Hypothyroidism, unspecified; E78.00 Pure hypercholesterolemia, unspecified; I25.10 Atherosclerotic heart disease of native coronary artery without angina pectoris; Z79.02 Long term (current) use of antithrombotics/antiplatelets; Z79.82 Long term (current) use of aspirin; Z79.890 Hormone replacement therapy; Z79.899 Other long term (current) drug therapy
CPT/HCPCS: 36415; 70450; 71045; 80053; 80061; 81001; 82550; 83036; 83615; 83735; 84484; 85025; 85610; 85730; 87086; 87181; 93005; 93880; 99285; G0378

== ENCOUNTER 2017-12-14 08:01 | Day surgery (SDC) | payer MEDICARE, MEDICAID ==
[2017-12-11 12:52] VITALS: BMI 32.8
[2017-12-14 08:36] LABS: BASO # 0.02 K/mm3 (0.0-2.0); BASO % 0.7 % (0.0-3.0); EOS # 0.1 (0.0-0.7); EOS % 4.2 % (1.5-5.0); GRAN # 1.49 (1.4-6.5); GRAN % 52.1 % (50.0-68.0); HEMOGLOBIN 11.1 g/dL (12.0-16.0); LYMPH # 0.9 (1.2-3.4); LYMPH % 32.9 % (22.0-35.0); MEAN CELL VOLUME 75.9 fl (80.0-105.0); MEAN CORPUSCULAR HEMOGLOBIN 23.9 pg (25.0-35.0); MEAN CORPUSCULAR HGB CONC 31.5 g/dl (31.0-37.0); MEAN PLATELET VOLUME 8.9 fl (7.0-11.0); MONO # 0.3 (0.1-0.6); MONO % 10.1 % (1.0-6.0); RBC 4.64 10^6/uL (3.5-6.1); RED CELL DISTRIBUTION WIDTH 15.3 % (11.5-14.5)
[2017-12-14 08:38] LABS: WHITE BLOOD COUNT 2.9 10^3/ul (4.5-11.0)
[2017-12-14 08:43] LABS: CALCIUM 9.2 mg/dL (8.4-10.5)
[2017-12-14 08:49] LABS: INR 1.02; PARTIAL THROMBOPLASTIN TIME 28.3 Seconds (25.1-36.5); PROTHROMBIN TIME 11.7 SECONDS (9.4-12.5)
[2017-12-14 09:13] VITALS: RESP 18
[2017-12-14] MEDS ORDERED: Lidocaine PF 2% (5 ml) Inj (For Cardiac Arrhy) ONE (11:03)
[2017-12-14] MEDS ORDERED: Iodixanol 320 MG/ML 200 ML BOTTLE IV ONE (11:03)
[2017-12-14] MEDS ORDERED: Midazolam 2 MG/2 ML VIAL ONE ×2 (11:32→12:07)
[2017-12-14] MEDS ORDERED: Sodium Chloride 0.9% 1,000 ML IV SCH (12:30)
[2017-12-14 12:45] VITALS: TEMP 98.4
--- NOTE | 2017-12-14 13:44 | CARDCATH ---
PROCEDURE DATE: 12/14/2017 CARDIAC CATHETERIZATION HISTORY: The patient is an 82-year-old woman with a history of previous anterior wall myocardial infarction who presents with exertional fatigue and an abnormal stress test. Because of this, a cardiac catheterization was recommended. PROCEDURES: Left heart catheterization with coronary arteriography and left ventriculogram. The right femoral artery was cannulated with a 6-Korean sheath. There were no complications. I performed moderate sedation, which included the presence of an independent trained observer that assisted in monitoring the patient's level of consciousness and physiologic status. After administration of Versed and fentanyl, my intra service time was 15 minutes. The findings on catheterization included a left ventricle that contracted normally. Estimated ejection fraction is 55-60%. His coronary anatomy revealed a right dominant circulation. The RCA revealed diffuse atherosclerosis with multiple noncritical lesion throughout its course. The left main artery was unremarkable. The LAD revealed diffuse atherosclerosis with a patent stent in the midportion. There is 40-50% stenoses in the midportion of the of the LAD outside the stent. The circumflex artery revealed a 50-60% stenosis in the proximal portion, which is unchanged from her previous. Angio-Seal was used to close the femoral artery site. The patient tolerated the procedure well. In summary, the procedure revealed a patent stent in the LAD, which was placed during her acute anterior wall KS. The chronic 60% stenosis in the proximal circumflex artery is unchanged. There is a noncritical 50% stenoses prior to the stent in the LAD. LV function is normal. Given these findings, the patient is doing well. Her symptoms are not attributed to new coronary artery disease. She will continue her cardiac risk reduction program. We will discontinue her tapering Norvasc which we have been doing since the patient has been taking lower salt load, her blood pressure has been well controlled. Milad Brewer MD
[2017-12-14 15:10] VITALS: O2SAT 97
[2017-12-14 15:50] VITALS: BP 106/48; PULSE 68
--- NOTE | 2017-12-15 07:02 | CON ---
DATE: 12/14/2017 HISTORY OF PRESENT ILLNESS: The patient is 82 years old. Patient was recently admitted on 04/15 with syncope, prior to that she has ST-elevation [place] and underwent cardiac cath, she came in for elective angioplasty today. PAST MEDICAL HISTORY: She has significant past medical history of; 1. Hypertension. 2. Rhq-gplqeqb-qlbdfpfwb diabetes. 3. Hyperlipidemia. 4. Status post left anterior descending angioplasty previously. The patient underwent angioplasty that shows patent LAD stent, 50% stenosis of proximal circumflex and noncritical 50% stenosis prior to the stent in the LAD. LV function within normal limits. Patient was seen and examined on the Same Day [facility]. PHYSICAL EXAMINATION: GENERAL: Today, she is awake, alert, oriented, communicative. VITAL SIGNS: She is afebrile, pulse 68, respirations 18, blood pressure 106/48. LUNGS: Bilateral fair airflow. No rhonchi or crackle. HEART: S1, S2 audible. ABDOMEN: Soft, nontender. No rebound. No guarding. NEUROLOGICAL: Patient is awake, alert, oriented. Moves all extremities except right groin where she had pressure dressing done. EXTREMITIES: Bilateral legs, no edema. LABORATORY EXAM: WBC 2.9, hemoglobin 11.1, hematocrit 35.2, platelet of 220. PT 11.7, INR 1.02. Chemistry: Sodium 141, potassium 4.1, chloride 104, CO2 of 20, BUN 16, creatinine 1.2. Blood sugar 99. MEDICATIONS AT HOME: The patient is on amlodipine 2.5 mg daily, levothyroxine 25 mcg daily, vitamin D, Plavix 75 daily, atorvastatin 40 mg daily, aspirin 81 daily. SOCIAL HISTORY: Patient denies smoking or drinking. Patient lives with her daughter. ASSESSMENT: 1. Coronary artery disease status post left anterior descending angioplasty in October. 2. Noncritical circumflex right coronary artery. 3. Hypertension. 4. Hyperlipidemia. PLAN: Patient's blood pressure has been running on the low side. Dr. Brewer decreased Norvasc from 10 to 5. I recommended patient's daughter who is at the bedside to monitor her blood pressure but she states she does not have blood pressure machine. She will rather like mom to take small dose of blood pressure medication. She was given prescription of Norvasc to 2.5 mg daily and she will follow with Dr. Mike as outpatient. Ellen Cota MD [facility] # [id number]
== END 2017-12-14 18:20 | disposition home or self-care (01) ==
LOC: CATH 08:01
PROVIDERS: ATTEND Internal Medicine Cardiovascular Disease
DX: I25.10 Atherosclerotic heart disease of native coronary artery without angina pectoris (principal); I10 Essential (primary) hypertension; E78.5 Hyperlipidemia, unspecified; I25.2 Old myocardial infarction; Z95.5 Presence of coronary angioplasty implant and graft
CPT/HCPCS: 36415; 80048; 80061; 85025; 85610; 85730; 86850; 86900; 93458; 99152; 99153; C1760; C1769; C2629; J1644; J2250; J3010; J7030; Q9966

== ENCOUNTER 2018-06-22 13:46 | Emergency (ER) | payer MEDICARE, MEDICAID ==
[2018-06-22 13:57] VITALS: BMI 27.5
--- NOTE | 2018-06-22 15:35 | ED PDOC ---
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 Pt started her own antibiotics yesterday. She states that she had extra at home for this same issue in the past. pt denies fever/chills. pt c/o pain to anterior aspect of right ear with decreased hearing. pt denies headaches, dizziness or weakness. no other complaints. Past Medical History - Provider Review Nursing Documentation Reviewed: Yes - Travel History Have you recently traveled outside [place] w/in the past 3 mons?: No - Infectious Disease Hx of Infectious Diseases: None - Cardiac Hx Pacemaker: No - Pulmonary Hx Respiratory Disorders: No - Neurological Hx Paralysis: No - HEENT Hx HEENT Disorder: Yes (glasses) Hx Cataracts: Yes (r eys sx in [place]) Other/Comment: had cataract in left eye needs sx - Renal Hx Renal Disorder: No - Endocrine/Metabolic Hx Endocrine Disorders: Yes Hx Hypothyroidism: Yes - Hematological/Oncological Hx Blood Transfusions: No - Integumentary Hx Dermatological Disorder: Yes Other/Comment: chronic redness itch and burning under left breast, small dry red cut to 4th left toe - Musculoskeletal/Rheumatological Hx Musculoskeletal Disorders: Yes - Gastrointestinal Hx Gastrointestinal Disorders: Yes (obese) - Genitourinary/Gynecological Hx Genitourinary Disorders: Yes Hx Urinary Tract Infection: Yes - Psychiatric Hx Emotional Abuse: No Hx Physical Abuse: No Hx Substance Use: No - Surgical History Hx Cardiac Catheterization: Yes (stent x1) - Anesthesia Hx Anesthesia Reactions: No Hx Malignant Hyperthermia: No - Suicidal Assessment Feels Threatened In Home Enviroment: No Family/Social History - Physician Review Nursing Documentation Reviewed: Yes Family/Social History: Unknown Family HX Smoking Status: Never Smoked Hx Alcohol Use: No Hx Substance Use: No Allergies/Home Meds Allergies/Adverse Reactions: Allergies No Known Allergies Allergy (Verified 11/13/17 11:23) Home Medications: Home Meds Medication Instructions Recorded Confirmed Ergocalciferol (Vitamin D2) 1.25 mg PO .WEEKLY 10/31/16 12/14/17 [Vitamin D2] amLODIPine [Norvasc] 2.5 mg PO DAILY 12/14/17 12/14/17 Review of Systems - Review of Systems Constitutional: absent: Fatigue, Fevers ENT: Hearing Changes, Other (right ear pain) Respiratory: absent: SOB, Cough Cardiovascular: absent: Chest Pain, Palpitations Gastrointestinal: absent: Abdominal Pain, Nausea, Vomiting Neurological: absent: Headache, Dizziness Psychiatric: absent: Anxiety Physical Exam Vital Signs Reviewed: Yes Vital Signs Temp Pulse Resp BP Pulse Ox 06/22/18 13:48 98.8 F 82 18 164/80 H 97 Temperature: Afebrile Blood Pressure: Hypertensive Pulse: Regular Respiratory Rate: Normal Appearance: Positive for: Well-Appearing, Non-Toxic, Comfortable Pain Distress: None Mental Status: Positive for: Alert and Oriented X 3 - Systems Exam Head: Present: Atraumatic Conjunctiva: Present: Normal Ears: Present: Other (+ pinna pull. NO mastoid tenderness or erythema). No: Normal, Normal Canal (right ear; + canal edema; unable to visualize TM due to wax and debris. ) Mouth: Present: Moist Mucous Membranes Pharnyx: Present: Normal Nose (External): Present: Atraumatic Neck: Present: Normal Range of Motion Respiratory/Chest: Present: Clear to Auscultation, Good Air Exchange. No: Respiratory Distress, Accessory Muscle Use Cardiovascular: Present: Regular Rate and Rhythm, Normal S1, S2. No: Murmurs Neurological: Present: GCS=15, Speech Normal Skin: Present: Warm, Dry Psychiatric: Present: Alert, Oriented x 3 Medical Decision Making ED Course and Treatment: 06/22/18 15:36 Patient is nontoxic well appearing in no distress. Vital signs are stable Tylenol p.o. Amoxicillin p.o. I advised follow up with primary care physician within the next 2 days, patient was advised to follow-up with the ENT specialist within the next 2 days. 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 All aspects of this case were discussed the attending of record. IMPRESSION; otitis media, otitis externa tylenol every 4 hours as needed for pain/fever reduction Increase fluids Amoxicillin 3 times daily times 10 days floxin otic; 10 drops to affected ear once daily Follow up with the ENT specialist within the next 2 days. Follow up primary care physician within the next 2 days Return if symptoms worsen persist or if the symptoms develop Reassessment Condition: Re-examined - Medication Orders Current Medication Orders: Amoxicillin (Amoxil 500 Mg Cap) 500 mg PO STAT STA; Protocol Stop: 06/22/18 15:28 Disposition/Present on Arrival - Present on Arrival Any Indicators Present on Arrival: No History of DVT/PE: No History of Uncontrolled Diabetes: No Urinary Catheter: No History of Decub. Ulcer: No History Surgical Site Infection Following: None - Disposition Have Diagnosis and Disposition been Completed?: Yes Diagnosis: Otitis media, Otitis externa Disposition: HOME/ ROUTINE Disposition Time: 15:39 Patient Plan: Discharge Patient Problems: Current Active Problems Problem Status Onset Otitis externa Acute Otitis media Acute Condition: GOOD Discharge Instructions (ExitCare): Ear Infections (Otitis Media) (DC), Outer Ear Infection (DC) Additional Instructions: Tylenol every 4 hours as needed for pain/fever reduction Increase fluids Amoxicillin 3 times daily times 10 days floxin otic; 10 drops to affected ear once daily Follow up with the ENT specialist within the next 2 days. Follow up primary care physician within the next 2 days Return if symptoms worsen persist or if the symptoms develop Prescriptions: Amoxicillin 500 mg PO TID #30 tab Ofloxacin Otic 0.3% [Floxin 0.3% Otic Soln] 10 drop AD DAILY #1 bottle Referrals: Ashlie Jeter MD [Primary Care Provider] - Follow up with primary Jacob Garcia DO [Staff Provider] - Follow up with primary Forms: [employer] (Macanese)
[2018-06-22 16:23] VITALS: BP 150/81; PULSE 79; RESP 19; TEMP 98.5; O2SAT 98
== END 2018-06-22 16:22 | disposition home or self-care (01) ==
LOC: ED 13:46
DX: H66.90 Otitis media, unspecified, unspecified ear (principal); H60.90 Unspecified otitis externa, unspecified ear

== ENCOUNTER 2018-07-21 08:24 | Emergency (ER) | payer MEDICARE, MEDICAID ==
[2018-07-21 08:31] VITALS: BMI 28.3
[2018-07-21 08:38] VITALS: TEMP 97.5
--- NOTE | 2018-07-21 09:23 | ED PDOC ---
Arrival/HPI - General Chief Complaint: Back Pain Time Seen by Provider: 07/21/18 09:05 Historian: Family (daughter) - History of Present Illness Narrative History of Present Illness (Text): 07/21/18 09:25 83 year old F with pmh of hypertension presents with chief complaint of right sided back pain. Daughter reports patient presented to PMD last Thursday (07/14/2018) for same complaint and was prescribed meloxicam. Patient mentions meloxicam provided no pain relief. She also complains of burning with urinationbut denies any hematuria or abdominal pain. Patient denies any trauma/falls, fevers, chills, headache, dizziness, chest pain, shortness of breath, dyspnea on exertion, cough, diaphoresis, nausea, vomiting, diarrhea, or any other complaint. Time/Duration: < week Symptom Onset: Sudden Symptom Course: Unchanged Activities at Onset: Light Context: Home Past Medical History - Provider Review Nursing Documentation Reviewed: Yes - Infectious Disease Hx of Infectious Diseases: None - Reproductive Menopause: Yes - Cardiac Hx Cardiac Disorders: No - Pulmonary Hx Respiratory Disorders: No - Neurological Hx Paralysis: No - HEENT Hx HEENT Disorder: Yes (glasses) Hx Cataracts: Yes (r eys sx in [place]) Other/Comment: had cataract in left eye needs sx - Renal Hx Renal Disorder: No - Endocrine/Metabolic Hx Endocrine Disorders: Yes Hx Hypothyroidism: Yes - Hematological/Oncological Hx Blood Transfusions: No - Integumentary Hx Dermatological Disorder: Yes Other/Comment: chronic redness itch and burning under left breast, small dry red cut to 4th left toe - Musculoskeletal/Rheumatological Hx Musculoskeletal Disorders: Yes - Gastrointestinal Hx Gastrointestinal Disorders: Yes (obese) - Genitourinary/Gynecological Hx Genitourinary Disorders: Yes Hx Urinary Tract Infection: Yes - Psychiatric Hx Emotional Abuse: No Hx Physical Abuse: No Hx Substance Use: No - Surgical History Hx Cardiac Catheterization: Yes (stent x1) - Anesthesia Hx Anesthesia: Yes Hx Anesthesia Reactions: No Hx Malignant Hyperthermia: No - Suicidal Assessment Feels Threatened In Home Enviroment: No Family/Social History - Physician Review Nursing Documentation Reviewed: Yes Family/Social History: Unknown Family HX Smoking Status: Never Smoked Hx Alcohol Use: No Hx Substance Use: No Allergies/Home Meds Allergies/Adverse Reactions: Allergies No Known Allergies Allergy (Verified 11/13/17 11:23) Home Medications: Home Meds Medication Instructions Recorded Confirmed Ergocalciferol (Vitamin D2) 1.25 mg PO .WEEKLY 10/31/16 07/21/18 [Vitamin D2] amLODIPine [Norvasc] 2.5 mg PO DAILY 12/14/17 07/21/18 Meloxicam [Mobic] 15 mg PO DAILY 07/21/18 07/21/18 Phenazopyridine [Pyridium] 200 mg PO TID 07/21/18 07/21/18 Review of Systems - Physician Review All systems were reviewed & negative as marked: Yes - Review of Systems Constitutional: absent: Fevers ENT: absent: Sore Throat, Rhinorrhea, Epistaxis Respiratory: absent: SOB, Cough, Wheezing Cardiovascular: absent: Chest Pain, Palpitations, MIGUEL, Syncope Gastrointestinal: absent: Abdominal Pain, Constipation, Diarrhea, Nausea, Vomiting, Appetite Changes, Hematochezia, Hematemesis Genitourinary Female: Dysuria. absent: Hematuria, Urine Output Changes Musculoskeletal: Back Pain (right side). absent: Arthralgias Skin: absent: Rash, Cellulitis Neurological: absent: Headache, Dizziness Physical Exam Vital Signs Reviewed: Yes Vital Signs Temp Pulse Resp BP Pulse Ox 07/21/18 08:25 97.5 F L 68 18 132/61 100 Temperature: Afebrile Blood Pressure: Normal Pulse: Regular Respiratory Rate: Normal Appearance: Positive for: Well-Appearing, Non-Toxic, Comfortable Pain Distress: Mild Mental Status: Positive for: Alert and Oriented X 3 - Systems Exam Head: Present: Atraumatic, Normocephalic Pupils: Present: PERRL Extroacular Muscles: Present: EOMI Conjunctiva: Present: Normal Mouth: Present: Moist Mucous Membranes Neck: Present: Normal Range of Motion Respiratory/Chest: Present: Clear to Auscultation, Good Air Exchange. No: Respiratory Distress, Accessory Muscle Use Cardiovascular: Present: Regular Rate and Rhythm, Normal S1, S2. No: Murmurs Abdomen: Present: Normal Bowel Sounds ( ). No: Tenderness, Distention, Peritoneal Signs Back: Present: Normal Inspection. No: CVA Tenderness Upper Extremity: Present: Normal Inspection. No: Cyanosis, Edema Lower Extremity: Present: Normal Inspection. No: Edema Neurological: Present: Speech Normal, Motor Func Grossly Intact, Normal Sensory Function, Normal Cerebellar Funct Skin: Present: Warm, Dry, Normal Color. No: Rashes Psychiatric: Present: Alert, Oriented x 3, Normal Insight, Normal Concentration Medical Decision Making ED Course and Treatment: 07/21/18 09:23 Impression: 83 year old F presents with chief complaint of right sided back pain. Daughter reports patient presented to PMD last Thursday (07/14/2018) for same complaint and was prescribed meloxicam. Patient mentions meloxicam provided no pain relief. Plan: -- CT Abd/Pelvis w/o contrast -- Urinalysis -- Labs -- Reassess and disposition Prior Visits: Notes and results from previous visits were reviewed. Progress Notes: Patient refuses any pain medications 07/21/18 11:20 CT Abdomen/Pelvis -- No acute intra-abdominal findings 07/21/18 12:44 Discussed workup and results of CT abd/pelvis with patient and daughter. Will treat UTI with Rocephin and prescribe keflex. Patient agrees with plan. Advised to follow up with PMD. - Scribe Statement The provider has reviewed the documentation as recorded by the Torres Hooper All medical record entries made by the Jorgeibkelsey were at my direction and per sonally dictated by me. I have reviewed the chart and agree that the record accurately reflects my personal performance of the history, physical exam, medical decision making, and the department course for this patient. I have also personally directed, reviewed, and agree with the discharge instructions and disposition. Disposition/Present on Arrival - Present on Arrival Any Indicators Present on Arrival: No History of DVT/PE: No History of Uncontrolled Diabetes: No Urinary Catheter: No History of Decub. Ulcer: No History Surgical Site Infection Following: None - Disposition Have Diagnosis and Disposition been Completed?: Yes Diagnosis: UTI (urinary tract infection) Disposition: HOME/ ROUTINE Disposition Time: 12:36 Patient Plan: Discharge Condition: STABLE Discharge Instructions (ExitCare): Urinary Tract Infection, Adult (DC) Additional Instructions: ALISE Fisher SAID, thank you for letting us take care of you today. Your provider was Hortencia Maier MD and you were treated for flank pain ( right). The emergency medical care you received today was directed at your acute symptoms. If you were prescribed any medication, please fill it and take as directed. It may take several days for your symptoms to resolve. Return to the Emergency Department if your symptoms worsen, do not improve, or if you have any other problems. Please contact your doctor in 1-2 days for a follow up visit. Bring any paperwork you were given at discharge with you along with any medications you are taking to your follow up visit. Our treatment cannot replace ongoing medical care by a primary care provider outside of the emergency department. Thank you for allowing the [facility] team to be part of your care today. If you had an X-Ray or CT scan: A Radiologist will review the ED reading if any change in treatment is needed we will contact you. If you had a blood, urine, or wound culture: It will take several days for the results, if any change in treatment is needed we will contact you. If you had an STI test: It will take 48 hours for the results. Please call after 1 week if you have not heard back. Prescriptions: Cephalexin [cephalexin] 250 mg PO QID #28 cap Referrals: Ashlie Jeter MD [Primary Care Provider] - Follow up with primary Forms: [employer] (Al[place]ian)
[2018-07-21 10:08] LABS: BASO # 0.02 K/mm3 (0.0-2.0); BASO % 0.6 % (0.0-3.0); EOS # 0.1 (0.0-0.7); EOS % 3.8 % (1.5-5.0); HEMOGLOBIN 10.3 g/dL (12.0-16.0); LYMPH # 0.9 (1.2-3.4); LYMPH % 27.7 % (22.0-35.0); MEAN CELL VOLUME 69.6 fl (80.0-105.0); MEAN CORPUSCULAR HEMOGLOBIN 21.3 pg (25.0-35.0); MEAN CORPUSCULAR HGB CONC 30.7 g/dl (31.0-37.0); MEAN PLATELET VOLUME 8.8 fl (7.0-11.0); MONO # 0.5 (0.1-0.6); MONO % 16.2 % (1.0-6.0); RBC 4.83 10^6/uL (3.5-6.1); RED CELL DISTRIBUTION WIDTH 18.3 % (11.5-14.5); WHITE BLOOD COUNT 3.1 10^3/uL (4.5-11.0)
[2018-07-21 10:13] LABS: URINE BILIRUBIN NEGATIVE (NEGATIVE); URINE BLOOD TRACE-LYSED (NEGATIVE); URINE GLUCOSE (UA) NEGATIVE (NEGATIVE); URINE LEUKOCYTE ESTERASE MODERATE Leu/uL (NEGATIVE); URINE PROTEIN NEGATIVE mg/dL (<30 mg/dL); URINE UROBILINOGEN 0.2 E.U./dL (<1 E.U./dL)
[2018-07-21 10:15] LABS: URINE APPEARANCE TURBID (CLEAR); URINE COLOR YELLOW (YELLOW)
[2018-07-21 10:16] LABS: AMYLASE 128 U/L (35-125); LIPASE 233 U/L (23-300)
[2018-07-21 10:28] LABS: TROPONIN I < 0.01 ng/mL
--- NOTE | 2018-07-21 11:12 | CT ---
Date of service: 07/21/2018 PROCEDURE: CT Abdomen and Pelvis without intravenous contrast HISTORY: left flank pain COMPARISON: 11/02/2016 TECHNIQUE: Without contrast.. Contrast dose: Radiation dose: Total exam DLP = 744.16 mGy-cm. This CT exam was performed using one or more of the following dose reduction techniques: Automated exposure control, adjustment of the mA and/or kV according to patient size, and/or use of iterative reconstruction technique. FINDINGS: LOWER THORAX: Unremarkable. LIVER: Unremarkable. No gross lesion or ductal dilatation. GALLBLADDER AND BILE DUCTS: Multiple gallstones PANCREAS: Unremarkable. No gross lesion or ductal dilatation. SPLEEN: Large rim calcified splenic cysts are again seen. These are unchanged. ADRENALS: Unremarkable. No mass. KIDNEYS AND URETERS: Unremarkable. No hydronephrosis. No solid mass. VASCULATURE: Unremarkable. No aortic aneurysm. Aortic calcification BOWEL: Unremarkable. No obstruction. No gross mural thickening. APPENDIX: Unremarkable. Normal appendix. PERITONEUM: Unremarkable. No free fluid. No free air. LYMPH NODES: Unremarkable. No enlarged lymph nodes. BLADDER: Unremarkable. REPRODUCTIVE: Unremarkable. BONES: No acute fracture. OTHER FINDINGS: None. IMPRESSION: No acute intra-abdominal findings
[2018-07-21 11:39] LABS: ALB/GLOB RATIO 1.2 (1.1-1.8); ALT/SGPT 11 U/L (7-56); AST/SGOT 35 U/L (14-36); BLOOD UREA NITROGEN 22 mg/dL (7-21); CALCIUM 9.2 mg/dL (8.4-10.5); GFR NON-AFRICAN AMERICAN 53
[2018-07-21] MEDS ORDERED: cefTRIAXone 1 gm 1 GM/100 ML BAG IVPB STA (11:42)
[2018-07-21 13:10] VITALS: BP 133/59; PULSE 67; RESP 15; O2SAT 100
== END 2018-07-21 13:54 | disposition home or self-care (01) ==
LOC: ED 08:24
DX: N39.0 Urinary tract infection, site not specified (principal); I10 Essential (primary) hypertension; Z95.5 Presence of coronary angioplasty implant and graft
CPT/HCPCS: 74176; 80053; 81001; 82150; 82550; 83615; 83690; 84484; 85025; 85730; 87086; 96365; 99283; J0696